=== PATIENT | female | born 1945 | race Caucasian/White ===

== ENCOUNTER 2020-08-01 08:57 | Outpatient (REF) | payer MEDICARE, MEDICAID, SELFPAY ==
[2020-08-01 11:55] LABS: Alanine Aminotransferase 10 U/L (0-31); Anion Gap 13 (12-20); Aspartate Amino Transferase 13 U/L (5-31); Blood Urea Nitrogen 17 mg/dL (9-16); Calcium 8.5 mg/dL (8.4-10.2); Carbon Dioxide 27 mmol/L (22-29); Chloride 108 mmol/L (96-108); Cholesterol 137 mg/dL; Estimated Glomerular Filt Rate > 60; Glucose Fasting 106 mg/dL (60-99); HDL Cholesterol 42 mg/dL; LDL Cholesterol Calculated 76 mg/dl; Potassium 4.6 mmol/l (3.3-5.1); Sodium 143 mmol/L (135-145); Triglycerides 95 mg/dL
[2020-08-08 09:17] LABS: Lipoprotein A 303 nmol/L (<75)
== END 2020-08-01 08:58 | disposition home or self-care (01) ==
LOC: HO.HMGCLDS 08:57
PROVIDERS: PCP Internal Medicine; Visit Provider Internal Medicine
DX: I25.10 Atherosclerotic heart disease of native coronary artery without angina pectoris (principal); E78.5 Hyperlipidemia, unspecified; I10 Essential (primary) hypertension
CPT/HCPCS: 80048; 80061; 83695; 84450; 84460

== ENCOUNTER 2020-08-13 13:32 | Outpatient (REF) | payer MEDICARE, MEDICAID, SELFPAY ==
--- NOTE | 2020-08-15 10:20 | MHC.HEMONCSW ---
PER [facility] PET, PT PREFERS SCAN BE DONE 08/20/20. AT 10;15AM.
== END 2020-08-13 13:33 | disposition home or self-care (01) ==
LOC: HO.PET 13:32
PROVIDERS: Visit Provider Internal Medicine
DX: Z13.89 Encounter for screening for other disorder (principal)

== ENCOUNTER 2020-08-20 10:00 | Outpatient (REF) | payer MEDICARE, MEDICAID, SELFPAY ==
--- NOTE | 2020-08-20 | PE_ITS ---
EXAMINATION: Fluorine-18 FDG PET/CT Scan CLINICAL INDICATION: Subsequent treatment management. Metastatic breast cancer, restaging. PROCEDURE: 66 minutes following the intravenous administration of 16.1 mCi of fluorine 18 FDG, images from the base of the skull to the mid thighs were obtained using a combined PET/CT scanner with CT scan based attenuation correction. No oral contrast was administered. No intravenous contrast was administered. Transverse, coronal, sagittal, and volume reconstruction projections were obtained. The patient's blood glucose as determined by a finger stick, was 112 mg/dl immediately prior to injection. Total CT exam dose-length product 452.32 mGy-cm COMPARISON: The previous PET CT scan dated 11/07/2019 is available for comparison. More recent CT scan of the chest dated 04/15/2020 is also available for comparison. FINDINGS: (Slice numbers described in this report are numbered superiorly to inferiorly with slice #1 in the head) NECK AND VISUALIZED HEAD: No foci of abnormal FDG activity are noted. The distribution of FDG activity is physiological. There is no cervical lymphadenopathy. THORAX: There is a moderately sized loculated right pleural effusion. The pleural fluid is FDG photopenic, but both the medial and lateral pleural surfaces show mildly increased FDG activity diffusely, with SUV Max 4.2, slice 132/311. The circumferential peripheral FDG activity in the pleura is new since the prior PET CT scan dated 11/07/2019. The most intense FDG activity is associated with pleural calcifications that were not present on 11/07/2019 and are also more extensive than scattered pleural calcifications present on the diagnostic CT scan dated 04/15/2020. There has also been a significant decrease in FDG activity present in the right lower lobe proximal peribronchial region present on 11/07/2019. A chest tube present on the 04/15/[address] scan has been removed and the pleural effusion now present is significantly smaller than on the latter study. Scattered bilateral FDG avid groundglass opacities are present, most prominent in the left upper lobe showing SUV Max 3.2, slice 80/311 corresponding to a very irregular patchy opacity measuring approximately 2.6 x 2.1 cm in largest transverse dimensions, and approximately 1.7 cm cephalocaudad. Inferior to this an additional smaller and very irregular groundglass opacity shows mild FDG activity, SUV Max 3.9, slice 88/311. A smaller and less prominent right upper lobe groundglass opacity shows SUV Max 2.3, also slice 88/311. These no additional foci of abnormal FDG activity are present in the chest. There is no mediastinal, supraclavicular, or axillary lymphadenopathy. There is no left-sided pleural fluid, pericardial fluid, or pneumothorax. Groundglass opacities are all new since 04/15/2020. ABDOMEN AND PELVIS: In the liver there are is a focus of mild FDG activity present in liver Couinaud segment 8, SUV Max 4.5, slice 133/311. This corresponds to the superior margin of a hypodensity on the CT images that measures 4.3 x 2.5 cm in largest transverse dimensions and approximately 2.5 cm cephalocaudad. This focus is much less intense than an FDG avid focus at this site on the 11/07/2019 PET/CT scan when this showed SUV Max 9.7. This is also smaller in size than previously when this measured 5.4 x 3.9 x 4.2 cm. Additional intensely FDG avid liver focus inferior and posterior to this has completely resolved and there has also been resolution of intensely FDG avid periportal lymphadenopathy present on 11/07/2019. No additional foci of abnormal FDG activity are now present in the abdomen or pelvis. Diffuse FDG activity of varying intensities is present throughout the gastrointestinal tract without a suspicious focal component. No additional FDG avid foci are present in the liver. The gallbladder and spleen appear unremarkable. The kidneys, adrenal glands and pancreas are unremarkable. There is no retroperitoneal, mesenteric, pelvic, or inguinal lymphadenopathy. The pelvic organs are unremarkable. MUSCULOSKELETAL: Diffuse sclerotic osseous metastases are present throughout the spine and pelvis and scattered in the thoracic cage and proximal femurs. None of these appear FDG avid. Intensely FDG avid osseous metastases present on the 11/17/2019 CT scan have resolved. VASCULAR: Diffuse vascular calcifications including coronary. PET/PET CT fusion skull to thigh IMPRESSION: 1. Since the prior PET CT scan dated 11/07/2019, intensely FDG avid hepatic and osseous metastases have resolved. Weak FDG activity in a small focus in the liver has markedly diminished in FDG intensity and size and other liver lesions have completely resolved. Diffuse sclerotic osseous metastases are now present, and these do not show significant abnormal FDG activity and likely represent healed metastases. 2. Intensely FDG avid periportal and peripancreatic and bilateral axillary lymphadenopathy previously present on 11/07/2019 has resolved. 3. There is now mild diffuse FDG activity in the periphery of the loculated pleural effusion on the right. This is nonspecific. While malignant pleural metastases that are metabolically active cannot be entirely excluded, this patient has undergone TPA pleurodesis since the prior PET CT scan and both the FDG avidity and new pleural calcifications may be secondary to the latter. A chest tube visible on the more recent 04/15/2020 CT scan has been removed. The pleural effusion is slightly smaller than on that prior CT scan. 4. FDG avid groundglass opacities have developed predominantly in the left upper lobe, new since 04/15/2020. These are more likely inflammatory in etiology, rather than malignant, because of the short term development and CT appearance. Clinical correlation is recommended, and in addition, a current diagnostic CT scan of the chest may be helpful in further characterizing these. 5. No additional abnormalities suspicious for other metastatic or malignant lesions are noted. 6. Vascular calcifications including coronary.
== END 2020-08-20 10:01 | disposition home or self-care (01) ==
LOC: HO.PET 10:00
PROVIDERS: Visit Provider Internal Medicine
DX: Z13.89 Encounter for screening for other disorder (principal)

== ENCOUNTER 2020-09-10 10:54 | Outpatient (REF) | payer MEDICARE, MEDICAID, SELFPAY ==
[2020-09-10 14:19] LABS: Hematocrit 31.4 % (37-47); Hemoglobin 10.3 g/dl (12.0-16.0); Lymphocytes Absolute Auto 0.5 X10*3/uL (1.2-4.9); Lymphocytes Percent Auto 26.1 % (20-40); MANUAL DIFF FLAG SCAN; Mean Corpuscular HGB Conc 32.8 g/dl (31.0-35.0); Mean Corpuscular Hemoglobin 35.2 pg (27.0-33.0); Mean Corpuscular Volume 107.2 fL (80-98); Mean Platelet Volume 11.5 fL (9.4-12.3); Monocytes Absolute Auto 0.3 X10*3/uL (0.1-1.2); Monocytes Percent Auto 14.1 % (2-11); Neutrophils Absolute Auto 1.1 X10*3/uL (2.0-8.3); Neutrophils Percent Auto 55.8 % (45-73); Platelet Count 130 X10*3/uL (160-400); Red Blood Count 2.93 X10*6/uL (4.20-5.50); Red Cell Distribution Width 16.9 % (11.0-16.0); SCAN SMEAR FLAG 1
[2020-09-10 14:40] LABS: Alanine Aminotransferase 13 U/L (0-31); Albumin Level 3.8 g/dL (3.5-5.0); Alkaline Phosphatase 98 U/L (39-117); Anion Gap 11 (12-20); Aspartate Amino Transferase 15 U/L (5-31); Bilirubin Total 0.7 mg/dL (0.0-1.0); Blood Urea Nitrogen 21 mg/dL (9-16); Calcium 8.4 mg/dL (8.4-10.2); Carbon Dioxide 28 mmol/L (22-29); Chloride 105 mmol/L (96-108); Estimated Glomerular Filt Rate 60; Glucose Random 110 mg/dL (60-115); Potassium 4.6 mmol/l (3.3-5.1); Sodium 139 mmol/L (135-145); Total Protein 6.3 g/dL (6.5-8.0)
[2020-09-10 15:05] LABS: SLIDE REVIEW VERIFIED
[2020-09-11 13:12] LABS: CA 27.29 133 U/mL (<38)
== END 2020-09-10 10:55 | disposition home or self-care (01) ==
LOC: HO.HMGCLDS 10:54
PROVIDERS: PCP Internal Medicine; Visit Provider Internal Medicine
DX: C50.919 Malignant neoplasm of unspecified site of unspecified female breast (principal)
CPT/HCPCS: 36415; 80053; 85025; 86300

== ENCOUNTER 2020-09-26 11:08 | Outpatient (REF) | payer MEDICARE, MEDICAID, SELFPAY | END 2020-09-26 11:09 | disposition home or self-care (01) | LOC: HO.LAB 11:08 | PROVIDERS: Visit Provider Internal Medicine | DX: Z20.828 Contact with and (suspected) exposure to other viral communicable diseases (principal) | CPT/HCPCS: C9803; U0003 ==

== ENCOUNTER 2020-10-31 09:50 | Outpatient (REF) | payer MEDICARE, MEDICAID, SELFPAY ==
[2020-10-31 11:24] LABS: Hematocrit 33.6 % (37-47); Hemoglobin 11.4 g/dl (12.0-16.0); Mean Corpuscular HGB Conc 33.9 g/dl (31.0-35.0); Mean Corpuscular Hemoglobin 36.4 pg (27.0-33.0); Mean Corpuscular Volume 107.3 fL (80-98); Mean Platelet Volume 10.1 fL (9.4-12.3); Platelet Count 202 X10*3/uL (160-400); Red Blood Count 3.13 X10*6/uL (4.20-5.50); Red Cell Distribution Width 13.3 % (11.0-16.0)
[2020-10-31 11:25] LABS: White Blood Count 2.2 X10*3/uL (4.8-10.8)
[2020-10-31 11:43] LABS: Alanine Aminotransferase 13 U/L (0-31); Albumin Level 3.9 g/dL (3.5-5.0); Alkaline Phosphatase 78 U/L (39-117); Anion Gap 12 (12-20); Aspartate Amino Transferase 17 U/L (5-31); Bilirubin Total 0.7 mg/dL (0.0-1.0); Blood Urea Nitrogen 21 mg/dL (9-16); Calcium 8.6 mg/dL (8.4-10.2); Carbon Dioxide 28 mmol/L (22-29); Chloride 105 mmol/L (96-108); Estimated Glomerular Filt Rate 47; Glucose Random 101 mg/dL (60-115); Potassium 4.7 mmol/l (3.3-5.1); Sodium 140 mmol/L (135-145); Total Protein 6.3 g/dL (6.5-8.0)
[2020-10-31 12:12] LABS: Band Neutrophils Percent 3 % (3-5); Eosinophils Percent Manual 1 % (0-4); Lymphocytes Absolute Manual 0.4 X10*3/uL (0.6-4.8); Lymphocytes Percent Manual 20 % (20-40); Monocytes Absolute Manual 0.2 X10*3/uL (0.0-1.2); Monocytes Percent Manual 7 % (2-11); Neutrophils Absolute Manual 1.6 X10*3/uL (2.2-7.9); Neutrophils Percent Manual 69 % (45-73)
[2020-10-31 12:13] LABS: Macrocytosis 2+; Platelet Estimate NORMAL (NORMAL)
[2020-10-31 12:14] LABS: Platelet Morphology Comment NORMAL
[2020-10-31 12:15] LABS: Ovalocytes 1+; Tear Drop Cells 1+
[2020-10-31 12:16] LABS: RBC Morphology NOTED
[2020-11-01 11:37] LABS: CA 27.29 117 U/mL (<38)
== END 2020-10-31 09:51 | disposition home or self-care (01) ==
LOC: HO.HMGCLDS 09:50
PROVIDERS: PCP Internal Medicine; Visit Provider Internal Medicine
DX: C50.919 Malignant neoplasm of unspecified site of unspecified female breast (principal)
CPT/HCPCS: 36415; 80053; 85007; 85025; 85027; 86300

== ENCOUNTER 2020-11-12 14:23 | Outpatient (REF) | payer MEDICARE, MEDICAID, SELFPAY ==
[2020-11-12 16:39] LABS: Basophils Percent Auto 1.3 % (0-2); Eosinophils Percent Auto 0.9 % (0-4); Hematocrit 29.3 % (37-47); Hemoglobin 10.1 g/dl (12.0-16.0); Lymphocytes Absolute Auto 0.8 X10*3/uL (1.2-4.9); Lymphocytes Percent Auto 35.6 % (20-40); Mean Corpuscular HGB Conc 34.5 g/dl (31.0-35.0); Mean Corpuscular Hemoglobin 36.6 pg (27.0-33.0); Mean Corpuscular Volume 106.2 fL (80-98); Mean Platelet Volume 11.3 fL (9.4-12.3); Monocytes Absolute Auto 0.4 X10*3/uL (0.1-1.2); Monocytes Percent Auto 16.9 % (2-11); Neutrophils Percent Auto 45.3 % (45-73); Platelet Count 113 X10*3/uL (160-400); Red Blood Count 2.76 X10*6/uL (4.20-5.50); Red Cell Distribution Width 13.7 % (11.0-16.0); SCAN SMEAR FLAG 1
[2020-11-12 16:45] LABS: White Blood Count 2.3 X10*3/uL (4.8-10.8)
[2020-11-12 16:46] LABS: MANUAL DIFF FLAG NO
[2020-11-12 17:21] LABS: Alanine Aminotransferase 13 U/L (0-31); Albumin Level 3.7 g/dL (3.5-5.0); Alkaline Phosphatase 74 U/L (39-117); Anion Gap 12 (12-20); Aspartate Amino Transferase 15 U/L (5-31); Bilirubin Total 0.7 mg/dL (0.0-1.0); Blood Urea Nitrogen 21 mg/dL (9-16); Calcium 8.7 mg/dL (8.4-10.2); Carbon Dioxide 27 mmol/L (22-29); Chloride 108 mmol/L (96-108); Estimated Glomerular Filt Rate 48; Glucose Random 110 mg/dL (60-115); Potassium 4.4 mmol/l (3.3-5.1); Sodium 143 mmol/L (135-145)
[2020-11-13 13:06] LABS: CA 27.29 99 U/mL (<38)
== END 2020-11-12 14:24 | disposition home or self-care (01) ==
LOC: HO.HMGCLDS 14:23
PROVIDERS: PCP Internal Medicine; Visit Provider Internal Medicine
DX: C50.919 Malignant neoplasm of unspecified site of unspecified female breast (principal)
CPT/HCPCS: 36415; 80053; 85025; 86300

== ENCOUNTER 2020-11-22 10:32 | Outpatient (REF) | payer MEDICARE, MEDICAID, SELFPAY ==
[2020-11-22 13:57] LABS: Hematocrit 29.3 % (37-47); Hemoglobin 10.1 g/dl (12.0-16.0); Mean Corpuscular HGB Conc 34.5 g/dl (31.0-35.0); Mean Corpuscular Hemoglobin 37.1 pg (27.0-33.0); Mean Corpuscular Volume 107.7 fL (80-98); Mean Platelet Volume 10.8 fL (9.4-12.3); Platelet Count 253 X10*3/uL (160-400); Red Blood Count 2.72 X10*6/uL (4.20-5.50); Red Cell Distribution Width 13.9 % (11.0-16.0)
[2020-11-22 13:58] LABS: White Blood Count 1.9 X10*3/uL (4.8-10.8)
[2020-11-22 14:26] LABS: Alanine Aminotransferase 10 U/L (0-31); Albumin Level 3.7 g/dL (3.5-5.0); Alkaline Phosphatase 82 U/L (39-117); Anion Gap 10 (12-20); Aspartate Amino Transferase 14 U/L (5-31); Blood Urea Nitrogen 23 mg/dL (9-16); Calcium 8.8 mg/dL (8.4-10.2); Carbon Dioxide 28 mmol/L (22-29); Chloride 108 mmol/L (96-108); Estimated Glomerular Filt Rate 54; Glucose Random 107 mg/dL (60-115); Potassium 4.4 mmol/L (3.3-5.1); Sodium 142 mmol/L (135-145)
== END 2020-11-22 10:33 | disposition home or self-care (01) ==
LOC: HO.HMGCLR 10:32
PROVIDERS: PCP Internal Medicine; Visit Provider Internal Medicine
DX: C50.919 Malignant neoplasm of unspecified site of unspecified female breast (principal)
CPT/HCPCS: 36415; 80053; 85027

== ENCOUNTER 2021-01-20 10:42 | Outpatient (REF) | payer MEDICARE, MEDICAID, SELFPAY ==
[2021-01-20 14:10] LABS: Basophils Percent Auto 1.6 % (0-2); Eosinophils Absolute Auto 0.1 X10*3/uL (0.0-0.4); Eosinophils Percent Auto 2.6 % (0-4); Hematocrit 30.2 % (37-47); Hemoglobin 10.4 g/dl (12.0-16.0); Imm Gran Abs Auto 0.01 X10*3/uL (0.00-0.03); Imm Gran Pct Auto 0.5 % (0.0-0.4); Lymphocytes Absolute Auto 0.6 X10*3/uL (1.2-4.9); Lymphocytes Percent Auto 29.1 % (20-40); MANUAL DIFF FLAG SCAN; Mean Corpuscular HGB Conc 34.4 g/dl (31.0-35.0); Mean Corpuscular Hemoglobin 37.5 pg (27.0-33.0); Mean Platelet Volume 10.6 fL (9.4-12.3); Monocytes Absolute Auto 0.2 X10*3/uL (0.1-1.2); Monocytes Percent Auto 10.1 % (2-11); Neutrophils Absolute Auto 1.1 X10*3/uL (2.0-8.3); Neutrophils Percent Auto 56.1 % (45-73); Platelet Count 213 X10*3/uL (160-400); Red Blood Count 2.77 X10*6/uL (4.20-5.50); Red Cell Distribution Width 14.5 % (11.0-16.0); SCAN SMEAR FLAG 1
[2021-01-20 14:15] LABS: White Blood Count 1.9 X10*3/uL (4.8-10.8)
[2021-01-20 14:27] LABS: Alanine Aminotransferase 14 U/L (0-31); Albumin Level 3.8 g/dL (3.5-5.0); Alkaline Phosphatase 76 U/L (39-117); Anion Gap 15 (12-20); Aspartate Amino Transferase 18 U/L (5-31); Bilirubin Total 1.4 mg/dL (0.0-1.0); Blood Urea Nitrogen 19 mg/dL (9-16); Calcium 8.7 mg/dL (8.4-10.2); Carbon Dioxide 27 mmol/L (22-29); Chloride 105 mmol/L (96-108); Estimated Glomerular Filt Rate 47; Glucose Fasting 105 mg/dL (60-99); Potassium 4.6 mmol/L (3.3-5.1); Sodium 142 mmol/L (135-145); Total Protein 6.3 g/dL (6.5-8.0)
[2021-01-20 14:48] LABS: SLIDE REVIEW VERIFIED
[2021-01-22 12:46] LABS: CA 27.29 107 U/mL (<38)
== END 2021-01-20 10:43 | disposition home or self-care (01) ==
LOC: HO.HMGCLR 10:42
PROVIDERS: Visit Provider Internal Medicine
DX: C50.919 Malignant neoplasm of unspecified site of unspecified female breast (principal)
CPT/HCPCS: 36415; 80053; 85025; 86300

== ENCOUNTER 2021-02-17 09:23 | Outpatient (REF) | payer MEDICARE, MEDICAID, SELFPAY ==
[2021-02-17 11:46] LABS: Basophils Absolute Auto 0.1 X10*3/uL (0.0-0.2); Basophils Percent Auto 2.2 % (0-2); Eosinophils Percent Auto 1.3 % (0-4); Hematocrit 31.9 % (37-47); Lymphocytes Absolute Auto 0.7 X10*3/uL (1.2-4.9); Lymphocytes Percent Auto 23.2 % (20-40); MANUAL DIFF FLAG SCAN; Mean Corpuscular HGB Conc 34.5 g/dl (31.0-35.0); Mean Corpuscular Hemoglobin 36.9 pg (27.0-33.0); Mean Platelet Volume 9.8 fL (9.4-12.3); Monocytes Absolute Auto 0.2 X10*3/uL (0.1-1.2); Monocytes Percent Auto 5.7 % (2-11); Neutrophils Absolute Auto 2.1 X10*3/uL (2.0-8.3); Neutrophils Percent Auto 67.6 % (45-73); Platelet Count 267 X10*3/uL (160-400); Red Blood Count 2.98 X10*6/uL (4.20-5.50); Red Cell Distribution Width 12.9 % (11.0-16.0); SCAN SMEAR FLAG 1; White Blood Count 3.2 X10*3/uL (4.8-10.8)
[2021-02-17 12:09] LABS: Alanine Aminotransferase 13 U/L (0-31); Albumin Level 3.8 g/dL (3.5-5.0); Alkaline Phosphatase 82 U/L (39-117); Anion Gap 13 (12-20); Aspartate Amino Transferase 18 U/L (5-31); Bilirubin Total 0.7 mg/dL (0.0-1.0); Blood Urea Nitrogen 19 mg/dL (9-16); Calcium 9.1 mg/dL (8.4-10.2); Carbon Dioxide 25 mmol/L (22-29); Chloride 107 mmol/L (96-108); Estimated Glomerular Filt Rate 53; Glucose Random 104 mg/dL (60-115); Potassium 4.4 mmol/L (3.3-5.1); Sodium 141 mmol/L (135-145); Total Protein 6.3 g/dL (6.5-8.0)
[2021-02-17 12:17] LABS: SLIDE REVIEW VERIFIED
== END 2021-02-17 09:24 | disposition home or self-care (01) ==
LOC: HO.HMGCLR 09:23
PROVIDERS: PCP Internal Medicine; Visit Provider Internal Medicine
DX: C50.919 Malignant neoplasm of unspecified site of unspecified female breast (principal)
CPT/HCPCS: 36415; 80053; 85025

== ENCOUNTER 2021-03-17 08:58 | Outpatient (REF) | payer MEDICARE, MEDICAID, SELFPAY ==
[2021-03-17 11:50] LABS: Alanine Aminotransferase 17 U/L (0-31); Albumin Level 3.8 g/dL (3.5-5.0); Alkaline Phosphatase 80 U/L (39-117); Anion Gap 11 (12-20); Aspartate Amino Transferase 19 U/L (5-31); Bilirubin Total 1.2 mg/dL (0.0-1.0); Blood Urea Nitrogen 17 mg/dL (9-16); Calcium 8.8 mg/dL (8.4-10.2); Carbon Dioxide 26 mmol/L (22-29); Chloride 107 mmol/L (96-108); Estimated Glomerular Filt Rate 54; Glucose Random 107 mg/dL (60-115); Potassium 4.9 mmol/L (3.3-5.1); Sodium 139 mmol/L (135-145); Total Protein 6.3 g/dL (6.5-8.0)
[2021-03-17 11:55] LABS: Basophils Absolute Auto 0.1 X10*3/uL (0.0-0.2); Basophils Percent Auto 1.9 % (0-2); Eosinophils Percent Auto 1.1 % (0-4); Hematocrit 31.7 % (37-47); Hemoglobin 10.6 g/dl (12.0-16.0); Imm Gran Abs Auto 0.01 X10*3/uL (0.00-0.03); Imm Gran Pct Auto 0.4 % (0.0-0.4); Lymphocytes Absolute Auto 0.8 X10*3/uL (1.2-4.9); Lymphocytes Percent Auto 30.2 % (20-40); MANUAL DIFF FLAG SCAN; Mean Corpuscular HGB Conc 33.4 g/dl (31.0-35.0); Mean Corpuscular Hemoglobin 36.2 pg (27.0-33.0); Mean Corpuscular Volume 108.2 fL (80-98); Mean Platelet Volume 10.9 fL (9.4-12.3); Monocytes Absolute Auto 0.2 X10*3/uL (0.1-1.2); Monocytes Percent Auto 7.9 % (2-11); Neutrophils Absolute Auto 1.6 X10*3/uL (2.0-8.3); Neutrophils Percent Auto 58.5 % (45-73); Platelet Count 232 X10*3/uL (160-400); Red Blood Count 2.93 X10*6/uL (4.20-5.50); Red Cell Distribution Width 14.6 % (11.0-16.0); SCAN SMEAR FLAG 1; White Blood Count 2.7 X10*3/uL (4.8-10.8)
[2021-03-17 12:08] LABS: SLIDE REVIEW VERIFIED
== END 2021-03-17 08:59 | disposition home or self-care (01) ==
LOC: HO.HMGCLR 08:58
PROVIDERS: PCP Internal Medicine; Visit Provider Internal Medicine
DX: C50.919 Malignant neoplasm of unspecified site of unspecified female breast (principal)
CPT/HCPCS: 36415; 80053; 85025

== ENCOUNTER 2021-04-11 13:32 | Outpatient (REF) | payer MEDICARE, MEDICAID, SELFPAY ==
[2021-04-11 16:36] LABS: Basophils Percent Auto 1.6 % (0-2); Eosinophils Percent Auto 0.8 % (0-4); Hematocrit 27.4 % (37-47); Hemoglobin 9.5 g/dl (12.0-16.0); Imm Gran Abs Auto 0.01 X10*3/uL (0.00-0.03); Imm Gran Pct Auto 0.4 % (0.0-0.4); Lymphocytes Absolute Auto 0.6 X10*3/uL (1.2-4.9); Lymphocytes Percent Auto 24.1 % (20-40); MANUAL DIFF FLAG SCAN; Mean Corpuscular HGB Conc 34.7 g/dl (31.0-35.0); Mean Corpuscular Hemoglobin 37.4 pg (27.0-33.0); Mean Corpuscular Volume 107.9 fL (80-98); Mean Platelet Volume 10.8 fL (9.4-12.3); Monocytes Absolute Auto 0.3 X10*3/uL (0.1-1.2); Neutrophils Absolute Auto 1.6 X10*3/uL (2.0-8.3); Neutrophils Percent Auto 63.1 % (45-73); Platelet Count 197 X10*3/uL (160-400); Red Blood Count 2.54 X10*6/uL (4.20-5.50); Red Cell Distribution Width 15.1 % (11.0-16.0); SCAN SMEAR FLAG 1
[2021-04-11 16:41] LABS: White Blood Count 2.5 X10*3/uL (4.8-10.8)
[2021-04-11 16:48] LABS: Alanine Aminotransferase 10 U/L (0-31); Albumin Level 3.5 g/dL (3.5-5.0); Alkaline Phosphatase 77 U/L (39-117); Anion Gap 11 (12-20); Aspartate Amino Transferase 21 U/L (5-31); Bilirubin Total 1.2 mg/dL (0.0-1.0); Blood Urea Nitrogen 22 mg/dL (9-16); Calcium 8.4 mg/dL (8.4-10.2); Carbon Dioxide 23 mmol/L (22-29); Chloride 113 mmol/L (96-108); Estimated Glomerular Filt Rate 58; Glucose Random 121 mg/dL (60-115); Potassium 4.3 mmol/L (3.3-5.1); Sodium 143 mmol/L (135-145); Total Protein 5.8 g/dL (6.5-8.0)
[2021-04-11 17:04] LABS: SLIDE REVIEW VERIFIED
== END 2021-04-11 13:33 | disposition home or self-care (01) ==
LOC: HO.HMGCLR 13:32
PROVIDERS: Visit Provider Internal Medicine
DX: C79.81 Secondary malignant neoplasm of breast (principal)
CPT/HCPCS: 36415; 80053; 85025

== ENCOUNTER 2021-04-14 11:00 | Outpatient (REF) | payer MEDICARE, MEDICAID, SELFPAY ==
--- NOTE | ~2021-04-14 | XR_ITS ---
EXAMINATION: XR CHEST CLINICAL INFORMATION: Right malignant effusion. COMPARISON: Chest 06/14/2020 TECHNIQUE: Frontal view of the chest was obtained. FINDINGS: There is a loculated right lateral pleural effusion with underlying compressive atelectasis. The right upper lungs and left lung is expanded and clear. Heart size and pulmonary vascularity is normal. No gross bony abnormality seen. XR/XR chest 1V IMPRESSION: Artery loculated right pleural effusion in the lower lobe. There is underlying compressive atelectasis and/or scarring. Rest of the lungs are clear.
== END 2021-04-14 11:01 | disposition home or self-care (01) ==
LOC: HO.XRAY 11:00
PROVIDERS: PCP Internal Medicine; Visit Provider Internal Medicine
DX: R06.02 Shortness of breath (principal)
CPT/HCPCS: 71045

== ENCOUNTER 2021-05-24 06:25 | Outpatient (REF) | payer MEDICARE, MEDICAID, SELFPAY ==
[2021-05-24 06:29] LABS: MANUAL DIFF FLAG NO
[2021-05-24 06:55] LABS: Basophils Absolute Auto 0.1 X10*3/uL (0.0-0.2); Basophils Percent Auto 1.3 % (0-2); Eosinophils Absolute Auto 2.1 X10*3/uL (0.0-0.4); Eosinophils Percent Auto 25.2 % (0-4); Imm Gran Abs Auto 0.13 X10*3/uL (0.00-0.03); Imm Gran Pct Auto 1.6 % (0.0-0.4); Lymphocytes Absolute Auto 0.6 X10*3/uL (1.2-4.9); Lymphocytes Percent Auto 7.4 % (20-40); Mean Corpuscular HGB Conc 31.6 g/dl (31.0-35.0); Mean Corpuscular Hemoglobin 32.8 pg (27.0-33.0); Mean Corpuscular Volume 103.9 fL (80-98); Mean Platelet Volume 10.2 fL (9.4-12.3); Monocytes Absolute Auto 1.1 X10*3/uL (0.1-1.2); Monocytes Percent Auto 13.6 % (2-11); Neutrophils Absolute Auto 4.2 X10*3/uL (2.0-8.3); Neutrophils Percent Auto 50.9 % (45-73); Platelet Count 252 X10*3/uL (160-400); Red Cell Distribution Width 15.9 % (11.0-16.0); White Blood Count 8.2 X10*3/uL (4.8-10.8)
[2021-05-24 07:23] LABS: Alanine Aminotransferase < 6 U/L (0-31); Albumin Level 2.3 g/dL (3.5-5.0); Alkaline Phosphatase 84 U/L (39-117); Aspartate Amino Transferase 50 U/L (5-31); Bilirubin Total 0.5 mg/dL (0.0-1.0); Blood Urea Nitrogen 7 mg/dL (9-16); Carbon Dioxide 33 mmol/L (22-29); Chloride 98 mmol/L (96-108); Estimated Glomerular Filt Rate 20; Glucose Random 109 mg/dL (60-115); Sodium 139 mmol/L (135-145); Total Protein 4.7 g/dL (6.5-8.0)
[2021-05-24 07:25] LABS: Anion Gap 11 (12-20); Calcium 7.1 mg/dL (8.4-10.2); Potassium 2.7 mmol/L (3.3-5.1)
[2021-05-24 08:00] LABS: Hematocrit 18.7 % (37-47)
[2021-05-24 08:13] LABS: Hemoglobin 5.9 g/dl (12.0-16.0)
--- NOTE | 2021-05-26 08:19 | MHC.HEMONC ---
pt is inpt at [facility]. H and H critically low and pt currently being dialyzed. Dr Shafer aware.
[2021-05-26 12:20] LABS: CA 27.29 96 U/mL (<38)
== END 2021-05-24 06:26 | disposition home or self-care (01) ==
LOC: HO.MMNH1L 06:25
PROVIDERS: Visit Provider Family Medicine
DX: C50.919 Malignant neoplasm of unspecified site of unspecified female breast (principal)
CPT/HCPCS: 36415; 80053; 85025; 86300

== ENCOUNTER 2021-05-26 21:19 | Outpatient (REF) | payer MEDICAID, SELFPAY | END 2021-05-26 21:20 | disposition home or self-care (01) | LOC: HO.MMNH1L 21:19 | PROVIDERS: Visit Provider Family Medicine | DX: Z13.89 Encounter for screening for other disorder (principal) ==

== ENCOUNTER 2021-06-02 00:18 | Outpatient (REF) | payer MEDICAID, SELFPAY | END 2021-06-02 00:19 | disposition home or self-care (01) | LOC: HO.MMNH1L 00:18 | PROVIDERS: Visit Provider Family Medicine | DX: Z13.89 Encounter for screening for other disorder (principal) ==

== ENCOUNTER 2021-06-06 13:47 | Outpatient (REF) | payer MEDICARE, MEDICAID, SELFPAY ==
[2021-06-06 14:26] LABS: Alanine Aminotransferase 22 U/L (0-31); Albumin Level 2.7 g/dL (3.5-5.0); Alkaline Phosphatase 114 U/L (39-117); Anion Gap 17 (12-20); Aspartate Amino Transferase 46 U/L (5-31); Bilirubin Total 0.7 mg/dL (0.0-1.0); Blood Urea Nitrogen 24 mg/dL (9-16); Carbon Dioxide 26 mmol/L (22-29); Chloride 105 mmol/L (96-108); Estimated Glomerular Filt Rate 34; Glucose Random 74 mg/dL (60-115); Potassium 3.1 mmol/L (3.3-5.1); Sodium 145 mmol/L (135-145)
[2021-06-06 14:47] LABS: Calcium 6.2 mg/dL (8.4-10.2)
== END 2021-06-06 13:48 | disposition home or self-care (01) ==
LOC: HO.LNP 13:47
PROVIDERS: Referring Provider Internal Medicine; Visit Provider Internal Medicine
DX: N18.6 End stage renal disease (principal); Z79.2 Long term (current) use of antibiotics
CPT/HCPCS: 80053

== ENCOUNTER 2021-06-09 00:32 | Outpatient (REF) | payer MEDICAID, SELFPAY | END 2021-06-09 00:33 | disposition home or self-care (01) | LOC: HO.MMNH1L 00:32 | PROVIDERS: Visit Provider Family Medicine | DX: Z13.89 Encounter for screening for other disorder (principal) ==

== ENCOUNTER 2021-06-13 11:06 | Outpatient (REF) | payer MEDICARE, MEDICAID, SELFPAY ==
[2021-06-13 13:59] LABS: MANUAL DIFF FLAG NO
[2021-06-13 14:04] LABS: Basophils Percent Auto 0.4 % (0-2); Eosinophils Absolute Auto 0.4 X10*3/uL (0.0-0.4); Eosinophils Percent Auto 5.4 % (0-4); Hematocrit 24.7 % (37-47); Hemoglobin 7.9 g/dl (12.0-16.0); Imm Gran Abs Auto 0.06 X10*3/uL (0.00-0.03); Imm Gran Pct Auto 0.9 % (0.0-0.4); Lymphocytes Absolute Auto 0.6 X10*3/uL (1.2-4.9); Mean Corpuscular Hemoglobin 31.2 pg (27.0-33.0); Mean Corpuscular Volume 97.6 fL (80-98); Mean Platelet Volume 10.6 fL (9.4-12.3); Monocytes Absolute Auto 0.6 X10*3/uL (0.1-1.2); Neutrophils Absolute Auto 5.2 X10*3/uL (2.0-8.3); Neutrophils Percent Auto 75.3 % (45-73); Platelet Count 202 X10*3/uL (160-400); Red Blood Count 2.53 X10*6/uL (4.20-5.50); Red Cell Distribution Width 16.2 % (11.0-16.0); White Blood Count 6.9 X10*3/uL (4.8-10.8)
[2021-06-13 14:39] LABS: Alanine Aminotransferase 13 U/L (0-31); Alkaline Phosphatase 99 U/L (39-117); Anion Gap 18 (12-20); Aspartate Amino Transferase 30 U/L (5-31); Bilirubin Total 0.7 mg/dL (0.0-1.0); Blood Urea Nitrogen 17 mg/dL (9-16); Carbon Dioxide 31 mmol/L (22-29); Chloride 101 mmol/L (96-108); Estimated Glomerular Filt Rate 44; Glucose Random 166 mg/dL (60-115); Potassium 3.8 mmol/L (3.3-5.1); Sodium 146 mmol/L (135-145); Total Protein 5.8 g/dL (6.5-8.0)
[2021-06-13 14:45] LABS: Calcium 5.9 mg/dL (8.4-10.2)
== END 2021-06-13 11:07 | disposition home or self-care (01) ==
LOC: HO.HMGCLDS 11:06
PROVIDERS: PCP Internal Medicine; Visit Provider Internal Medicine
DX: C50.919 Malignant neoplasm of unspecified site of unspecified female breast (principal)
CPT/HCPCS: 36415; 80053; 85025

== ENCOUNTER 2021-06-20 11:59 | Outpatient (REF) | payer MEDICARE, MEDICAID, SELFPAY ==
[2021-06-20 13:51] LABS: Basophils Percent Auto 0.4 % (0-2); Eosinophils Absolute Auto 0.3 X10*3/uL (0.0-0.4); Eosinophils Percent Auto 5.5 % (0-4); Hemoglobin 7.5 g/dl (12.0-16.0); Imm Gran Abs Auto 0.03 X10*3/uL (0.00-0.03); Imm Gran Pct Auto 0.6 % (0.0-0.4); Lymphocytes Percent Auto 18.9 % (20-40); MANUAL DIFF FLAG SCAN; Mean Corpuscular HGB Conc 31.3 g/dl (31.0-35.0); Mean Corpuscular Hemoglobin 29.6 pg (27.0-33.0); Mean Corpuscular Volume 94.9 fL (80-98); Mean Platelet Volume 10.1 fL (9.4-12.3); Monocytes Absolute Auto 0.3 X10*3/uL (0.1-1.2); Monocytes Percent Auto 6.1 % (2-11); Neutrophils Absolute Auto 3.6 X10*3/uL (2.0-8.3); Neutrophils Percent Auto 68.5 % (45-73); Platelet Count 391 X10*3/uL (160-400); Red Blood Count 2.53 X10*6/uL (4.20-5.50); Red Cell Distribution Width 15.2 % (11.0-16.0); SCAN SMEAR FLAG 1; White Blood Count 5.2 X10*3/uL (4.8-10.8)
[2021-06-20 14:10] LABS: SLIDE REVIEW VERIFIED
[2021-06-20 14:18] LABS: Alanine Aminotransferase 27 U/L (0-31); Albumin Level 3.2 g/dL (3.5-5.0); Alkaline Phosphatase 122 U/L (39-117); Anion Gap 18 (12-20); Aspartate Amino Transferase 35 U/L (5-31); Bilirubin Total 0.8 mg/dL (0.0-1.0); Blood Urea Nitrogen 17 mg/dL (9-16); Calcium 9.2 mg/dL (8.4-10.2); Carbon Dioxide 23 mmol/L (22-29); Chloride 104 mmol/L (96-108); Estimated Glomerular Filt Rate 40; Glucose Random 112 mg/dL (60-115); Potassium 4.8 mmol/L (3.3-5.1); Sodium 140 mmol/L (135-145); Total Protein 6.3 g/dL (6.5-8.0)
== END 2021-06-20 12:00 | disposition home or self-care (01) ==
LOC: HO.HMGCLDS 11:59
PROVIDERS: PCP Internal Medicine; Visit Provider Internal Medicine
DX: C50.919 Malignant neoplasm of unspecified site of unspecified female breast (principal)
CPT/HCPCS: 36415; 80053; 85025

== ENCOUNTER 2021-06-27 13:05 | Outpatient (REF) | payer MEDICARE, MEDICAID, SELFPAY ==
[2021-06-27 14:23] LABS: Basophils Percent Auto 0.6 % (0-2); Eosinophils Percent Auto 1.2 % (0-4); Hematocrit 25.3 % (37-47); Imm Gran Abs Auto 0.02 X10*3/uL (0.00-0.03); Imm Gran Pct Auto 0.6 % (0.0-0.4); Lymphocytes Absolute Auto 0.8 X10*3/uL (1.2-4.9); MANUAL DIFF FLAG SCAN; Mean Corpuscular HGB Conc 31.6 g/dl (31.0-35.0); Mean Corpuscular Hemoglobin 29.4 pg (27.0-33.0); Mean Platelet Volume 9.4 fL (9.4-12.3); Monocytes Absolute Auto 0.2 X10*3/uL (0.1-1.2); Monocytes Percent Auto 4.9 % (2-11); Neutrophils Absolute Auto 2.3 X10*3/uL (2.0-8.3); Neutrophils Percent Auto 68.7 % (45-73); Platelet Count 269 X10*3/uL (160-400); Red Blood Count 2.72 X10*6/uL (4.20-5.50); Red Cell Distribution Width 14.6 % (11.0-16.0); SCAN SMEAR FLAG 1; White Blood Count 3.3 X10*3/uL (4.8-10.8)
[2021-06-27 14:45] LABS: SLIDE REVIEW VERIFIED
[2021-06-27 14:49] LABS: Alanine Aminotransferase 23 U/L (0-31); Albumin Level 3.1 g/dL (3.5-5.0); Alkaline Phosphatase 112 U/L (39-117); Anion Gap 13 (12-20); Aspartate Amino Transferase 25 U/L (5-31); Bilirubin Total 0.5 mg/dL (0.0-1.0); Blood Urea Nitrogen 19 mg/dL (9-16); Calcium 8.3 mg/dL (8.4-10.2); Carbon Dioxide 23 mmol/L (22-29); Chloride 109 mmol/L (96-108); Estimated Glomerular Filt Rate 49; Glucose Random 125 mg/dL (60-115); Potassium 4.3 mmol/L (3.3-5.1); Sodium 141 mmol/L (135-145)
== END 2021-06-27 13:06 | disposition home or self-care (01) ==
LOC: HO.HMGCLDS 13:05
PROVIDERS: PCP Internal Medicine; Visit Provider Internal Medicine
DX: C50.919 Malignant neoplasm of unspecified site of unspecified female breast (principal)
CPT/HCPCS: 36415; 80053; 85025

== ENCOUNTER 2021-07-21 15:00 | Outpatient (REF) | payer MEDICARE, MEDICAID, SELFPAY ==
[2021-07-21 16:38] LABS: Basophils Percent Auto 1.8 % (0-2); Eosinophils Percent Auto 0.9 % (0-4); Hematocrit 22.5 % (37-47); Hemoglobin 7.5 g/dl (12.0-16.0); Imm Gran Abs Auto 0.01 X10*3/uL (0.00-0.03); Imm Gran Pct Auto 0.5 % (0.0-0.4); Lymphocytes Absolute Auto 0.8 X10*3/uL (1.2-4.9); Lymphocytes Percent Auto 34.8 % (20-40); MANUAL DIFF FLAG SCAN; Mean Corpuscular HGB Conc 33.3 g/dl (31.0-35.0); Mean Corpuscular Hemoglobin 31.4 pg (27.0-33.0); Mean Corpuscular Volume 94.1 fL (80-98); Mean Platelet Volume 9.5 fL (9.4-12.3); Monocytes Absolute Auto 0.3 X10*3/uL (0.1-1.2); Monocytes Percent Auto 11.3 % (2-11); Neutrophils Absolute Auto 1.1 X10*3/uL (2.0-8.3); Neutrophils Percent Auto 50.7 % (45-73); Platelet Count 272 X10*3/uL (160-400); Red Blood Count 2.39 X10*6/uL (4.20-5.50); Red Cell Distribution Width 20.4 % (11.0-16.0); SCAN SMEAR FLAG 1
[2021-07-21 16:41] LABS: White Blood Count 2.2 X10*3/uL (4.8-10.8)
[2021-07-21 16:57] LABS: SLIDE REVIEW VERIFIED
[2021-07-21 16:59] LABS: Alanine Aminotransferase 11 U/L (0-31); Albumin Level 3.4 g/dL (3.5-5.0); Alkaline Phosphatase 100 U/L (39-117); Anion Gap 13 (12-20); Aspartate Amino Transferase 18 U/L (5-31); Bilirubin Total 0.6 mg/dL (0.0-1.0); Blood Urea Nitrogen 16 mg/dL (9-16); Calcium 8.2 mg/dL (8.4-10.2); Carbon Dioxide 24 mmol/L (22-29); Chloride 108 mmol/L (96-108); Estimated Glomerular Filt Rate 54; Glucose Random 81 mg/dL (60-115); Potassium 4.2 mmol/L (3.3-5.1); Sodium 141 mmol/L (135-145); Total Protein 6.1 g/dL (6.5-8.0)
[2021-07-23 11:41] LABS: CA 27.29 175 U/mL (<38)
== END 2021-07-21 15:01 | disposition home or self-care (01) ==
LOC: HO.HMGCLR 15:00
PROVIDERS: PCP Internal Medicine; Visit Provider Internal Medicine
DX: C50.919 Malignant neoplasm of unspecified site of unspecified female breast (principal)
CPT/HCPCS: 36415; 80053; 85025; 86300

== ENCOUNTER 2021-07-22 10:41 | Outpatient (REF) | payer MEDICARE, MEDICAID, SELFPAY ==
[2021-07-24 12:22] LABS: CA 27.29 184 U/mL (<38)
== END 2021-07-22 10:42 | disposition home or self-care (01) ==
LOC: HO.LAB 10:41
PROVIDERS: PCP Internal Medicine; Visit Provider Internal Medicine
DX: C50.919 Malignant neoplasm of unspecified site of unspecified female breast (principal)
CPT/HCPCS: 36415; 86300

== ENCOUNTER 2021-08-21 08:20 | Outpatient (REF) | payer MEDICARE, MEDICAID, SELFPAY ==
[2021-08-21 11:42] LABS: Alanine Aminotransferase 15 U/L (0-31); Anion Gap 11 (12-20); Aspartate Amino Transferase 27 U/L (5-31); Blood Urea Nitrogen 19 mg/dL (9-16); Calcium 8.3 mg/dL (8.4-10.2); Carbon Dioxide 26 mmol/L (22-29); Chloride 110 mmol/L (96-108); Cholesterol 130 mg/dL; Estimated Glomerular Filt Rate 51; Glucose Fasting 102 mg/dL (60-99); HDL Cholesterol 40 mg/dL; LDL Cholesterol Calculated 74 mg/dl; Potassium 4.5 mmol/L (3.3-5.1); Sodium 142 mmol/L (135-145); Triglycerides 81 mg/dL
[2021-08-21 11:54] LABS: Vitamin D 25-OH Total 41.4 ng/mL (>30)
[2021-08-21 12:09] LABS: Folate > 20.0 ng/mL (> or = 4.0); Vitamin B12 > 2000 pg/mL (200-900)
[2021-08-23 18:26] LABS: TS Negative Control Passed; TS Panel A 0; TS Panel B 0; TS Positive Control Passed; TSpotTB Negative (Negative)
== END 2021-08-21 08:21 | disposition home or self-care (01) ==
LOC: HO.HMGCLDS 08:20
PROVIDERS: PCP Internal Medicine; Visit Provider Internal Medicine
DX: Z11.1 Encounter for screening for respiratory tuberculosis (principal); E53.8 Deficiency of other specified B group vitamins; E78.5 Hyperlipidemia, unspecified; I10 Essential (primary) hypertension; Z78.0 Asymptomatic menopausal state
CPT/HCPCS: 36415; 80048; 80061; 82306; 82607; 82746; 84450; 84460; 86481

== ENCOUNTER 2021-08-25 14:08 | Outpatient (REF) | payer MEDICARE, MEDICAID, SELFPAY ==
[2021-08-26 09:48] LABS: Basophils Absolute Auto 0.1 X10*3/uL (0.0-0.2); Basophils Percent Auto 2.3 % (0-2); Eosinophils Absolute Auto 0.1 X10*3/uL (0.0-0.4); Eosinophils Percent Auto 2.8 % (0-4); Hematocrit 30.8 % (37.0-47.0); Hemoglobin 10.2 g/dl (12.0-16.0); Imm Gran Abs Auto 0.01 X10*3/uL (0.00-0.03); Imm Gran Pct Auto 0.5 % (0.0-0.4); Lymphocytes Absolute Auto 0.6 X10*3/uL (1.2-4.9); MANUAL DIFF FLAG SCAN; Mean Corpuscular HGB Conc 33.1 g/dl (31.0-35.0); Mean Corpuscular Hemoglobin 32.9 pg (27.0-33.0); Mean Corpuscular Volume 99.4 fL (80.0-98.0); Mean Platelet Volume 10.3 fL (9.4-12.3); Monocytes Absolute Auto 0.5 X10*3/uL (0.1-1.2); Neutrophils Absolute Auto 0.95 x10*3/uL (2.0-8.3); Neutrophils Percent Auto 44.4 % (45-73); Platelet Count 191 X10*3/uL (160-400); Red Cell Distribution Width 20.3 % (11.0-16.0); SCAN SMEAR FLAG 1
[2021-08-26 10:08] LABS: White Blood Count 2.1 X10*3/uL (4.8-10.8)
[2021-08-26 10:16] LABS: SLIDE REVIEW VERIFIED
[2021-08-26 14:12] LABS: Alanine Aminotransferase 19 U/L (0-31); Albumin Level 3.6 g/dL (3.5-5.0); Alkaline Phosphatase 130 U/L (39-117); Anion Gap 14 (12-20); Aspartate Amino Transferase 32 U/L (5-31); Bilirubin Total 0.9 mg/dL (0.0-1.0); Blood Urea Nitrogen 15 mg/dL (9-16); Calcium 8.1 mg/dL (8.4-10.2); Carbon Dioxide 21 mmol/L (22-29); Chloride 109 mmol/L (96-108); Estimated Glomerular Filt Rate 58; Glucose Random 145 mg/dL (60-115); Potassium 3.8 mmol/L (3.3-5.1); Sodium 140 mmol/L (135-145); Total Protein 6.1 g/dL (6.5-8.0)
== END 2021-08-25 14:09 | disposition home or self-care (01) ==
LOC: HO.HMGCLDS 14:08
PROVIDERS: PCP Internal Medicine; Visit Provider Internal Medicine
DX: C50.919 Malignant neoplasm of unspecified site of unspecified female breast (principal)
CPT/HCPCS: 36415; 80053; 85025

== ENCOUNTER 2021-09-12 08:08 | Outpatient (REF) | payer MEDICARE, MEDICAID, SELFPAY ==
[2021-09-12 11:31] LABS: Hematocrit 31.2 % (37.0-47.0); Hemoglobin 10.1 g/dl (12.0-16.0); Mean Corpuscular HGB Conc 32.4 g/dl (31.0-35.0); Mean Corpuscular Volume 98.7 fL (80.0-98.0); Mean Platelet Volume 9.7 fL (9.4-12.3); NRBC Pct Auto 0.2 /100WBC (0.0-0.2); Platelet Count 328 X10*3/uL (160-400); Red Blood Count 3.16 X10*6/uL (4.20-5.50); Red Cell Distribution Width 17.7 % (11.0-16.0); White Blood Count 10.3 X10*3/uL (4.8-10.8)
[2021-09-12 11:59] LABS: Atypical Lymph Absolute Manual 0.1 x10*3/uL; Atypical Lymphs Percent Manual 1 % (0-6); Band Neutrophils Percent 8 % (3-5); Basophils Abs Manual 0.1 X10*3/uL (0.0-0.2); Basophils Percent Manual 1 % (0-2); Eosinophils Absolute Manual 0.2 X10*3/uL (0.0-0.4); Eosinophils Percent Manual 2 % (0-4); Lymphocytes Absolute Manual 0.6 X10*3/uL (1.2-4.9); Lymphocytes Percent Manual 6 % (20-40); Monocytes Absolute Manual 0.9 X10*3/uL (0.1-1.2); Monocytes Percent Manual 9 % (2-11); Neutrophils Absolute Manual 8.3 X10*3/uL (2.0-8.3); Neutrophils Percent Manual 73 % (45-73)
[2021-09-12 12:01] LABS: Acanthocytes 1+ (0-2) /OIF; Hypochromasia 1+ (5-14) /OIF; Macrocytosis 1+ (5-14) /OIF; Ovalocytes 1+ (5-14) /OIF; RBC Morphology NOTED; Tear Drop Cells 1+ (0-2) /OIF
[2021-09-12 12:02] LABS: Platelet Estimate NORMAL (NORMAL); Platelet Morphology Comment NORMAL; Polychromasia 1+ (0-2) /OIF; WBC Morphology Comment DYSMORPHIC
[2021-09-12 12:11] LABS: Alanine Aminotransferase 22 U/L (0-31); Albumin Level 3.1 g/dL (3.5-5.0); Alkaline Phosphatase 115 U/L (39-117); Anion Gap 14 (12-20); Aspartate Amino Transferase 26 U/L (5-31); Bilirubin Total 0.9 mg/dL (0.0-1.0); Blood Urea Nitrogen 14 mg/dL (9-16); Calcium 8.2 mg/dL (8.4-10.2); Carbon Dioxide 23 mmol/L (22-29); Chloride 108 mmol/L (96-108); Estimated Glomerular Filt Rate > 60; Glucose Random 115 mg/dL (60-115); Potassium 4.7 mmol/L (3.3-5.1); Sodium 140 mmol/L (135-145); Total Protein 5.4 g/dL (6.5-8.0)
--- NOTE | 2021-09-12 15:26 | MHC.HEMONC ---
Dr Shafer reviewed pt labs drawn earlier today. Potassium to be decreased to once a day as it was 4.7. refilled per pt sister request.
== END 2021-09-12 08:09 | disposition home or self-care (01) ==
LOC: HO.HMGCLDS 08:08
PROVIDERS: PCP Internal Medicine; Visit Provider Internal Medicine
DX: C50.919 Malignant neoplasm of unspecified site of unspecified female breast (principal)
CPT/HCPCS: 36415; 80053; 85007; 85027

== ENCOUNTER 2021-09-16 11:55 | Outpatient (REF) | payer MEDICARE, MEDICAID, SELFPAY ==
--- NOTE | ~2021-09-16 | XR_ITS ---
EXAMINATION: XR CHEST CLINICAL INFORMATION: Shortness of breath. Pleural effusion. COMPARISON: Most recent chest radiograph dated 04/14/2021. TECHNIQUE: Frontal view of the chest was obtained. FINDINGS: Loculated lateral pleural effusion on the right, similar when compared to the prior examination. Stable patchy right basilar airspace opacities. No new left-sided pleural effusion. No pneumothorax. Stable cardiomediastinal silhouette. XR/XR chest 1V IMPRESSION: Stable loculated right-sided pleural effusion with patchy right basilar opacities, unchanged.
== END 2021-09-16 11:56 | disposition home or self-care (01) ==
LOC: HO.XRAY 11:55
PROVIDERS: PCP Internal Medicine; Visit Provider Internal Medicine
DX: J90 Pleural effusion, not elsewhere classified (principal); R06.02 Shortness of breath; C50.919 Malignant neoplasm of unspecified site of unspecified female breast
CPT/HCPCS: 71045

== ENCOUNTER 2021-10-06 08:23 | Outpatient (REF) | payer MEDICARE, MEDICAID, SELFPAY ==
[2021-10-06 11:43] LABS: MANUAL DIFF FLAG NO
[2021-10-06 11:59] LABS: Basophils Absolute Auto 0.1 X10*3/uL (0.0-0.2); Basophils Percent Auto 0.7 % (0-2); Eosinophils Absolute Auto 0.1 X10*3/uL (0.0-0.4); Eosinophils Percent Auto 1.6 % (0-4); Hematocrit 32.7 % (37.0-47.0); Hemoglobin 9.9 g/dl (12.0-16.0); Imm Gran Abs Auto 0.12 X10*3/uL (0.00-0.03); Imm Gran Pct Auto 1.5 % (0.0-0.4); Lymphocytes Percent Auto 12.1 % (20-40); Mean Corpuscular HGB Conc 30.3 g/dl (31.0-35.0); Mean Corpuscular Hemoglobin 30.1 pg (27.0-33.0); Mean Corpuscular Volume 99.4 fL (80.0-98.0); Mean Platelet Volume 10.3 fL (9.4-12.3); Monocytes Percent Auto 12.2 % (2-11); Neutrophils Absolute Auto 5.8 x10*3/uL (2.0-8.3); Neutrophils Percent Auto 71.9 % (45-73); Platelet Count 319 X10*3/uL (160-400); Red Blood Count 3.29 X10*6/uL (4.20-5.50); Red Cell Distribution Width 18.6 % (11.0-16.0); White Blood Count 8.1 X10*3/uL (4.8-10.8)
[2021-10-06 12:15] LABS: Alanine Aminotransferase 26 U/L (0-31); Albumin Level 2.7 g/dL (3.5-5.0); Alkaline Phosphatase 110 U/L (39-117); Anion Gap 15 (12-20); Aspartate Amino Transferase 30 U/L (5-31); Bilirubin Total 0.8 mg/dL (0.0-1.0); Blood Urea Nitrogen 20 mg/dL (9-16); Calcium 8.2 mg/dL (8.4-10.2); Carbon Dioxide 21 mmol/L (22-29); Chloride 108 mmol/L (96-108); Estimated Glomerular Filt Rate > 60; Glucose Random 113 mg/dL (60-115); Potassium 4.9 mmol/L (3.3-5.1); Sodium 139 mmol/L (135-145); Total Protein 5.6 g/dL (6.5-8.0)
[2021-10-10 08:51] LABS: CA 27.29 173 U/mL (<38)
== END 2021-10-06 08:24 | disposition home or self-care (01) ==
LOC: HO.HMGCLDS 08:23
PROVIDERS: PCP Internal Medicine; Visit Provider Internal Medicine
DX: C50.919 Malignant neoplasm of unspecified site of unspecified female breast (principal)
CPT/HCPCS: 36415; 80053; 85025; 86300

== ENCOUNTER 2021-10-27 08:33 | Outpatient (REF) | payer MEDICARE, MEDICAID, SELFPAY ==
[2021-10-27 11:21] LABS: MANUAL DIFF FLAG NO
[2021-10-27 11:29] LABS: Basophils Absolute Auto 0.1 X10*3/uL (0.0-0.2); Basophils Percent Auto 0.8 % (0-2); Eosinophils Percent Auto 0.3 % (0-4); Hematocrit 33.2 % (37.0-47.0); Hemoglobin 10.1 g/dl (12.0-16.0); Imm Gran Abs Auto 0.07 X10*3/uL (0.00-0.03); Imm Gran Pct Auto 0.9 % (0.0-0.4); Lymphocytes Absolute Auto 1.1 X10*3/uL (1.2-4.9); Lymphocytes Percent Auto 13.9 % (20-40); Mean Corpuscular HGB Conc 30.4 g/dl (31.0-35.0); Mean Corpuscular Hemoglobin 29.7 pg (27.0-33.0); Mean Corpuscular Volume 97.6 fL (80.0-98.0); Mean Platelet Volume 10.2 fL (9.4-12.3); Neutrophils Absolute Auto 5.7 x10*3/uL (2.0-8.3); Neutrophils Percent Auto 72.1 % (45-73); Platelet Count 285 X10*3/uL (160-400); Red Cell Distribution Width 19.6 % (11.0-16.0); White Blood Count 7.9 X10*3/uL (4.8-10.8)
[2021-10-27 11:42] LABS: Alanine Aminotransferase 14 U/L (0-31); Alkaline Phosphatase 98 U/L (39-117); Anion Gap 12 (12-20); Aspartate Amino Transferase 18 U/L (5-31); Bilirubin Total 0.9 mg/dL (0.0-1.0); Blood Urea Nitrogen 17 mg/dL (9-16); Calcium 8.4 mg/dL (8.4-10.2); Carbon Dioxide 25 mmol/L (22-29); Chloride 109 mmol/L (96-108); Estimated Glomerular Filt Rate > 60; Glucose Random 107 mg/dL (60-115); Potassium 4.5 mmol/L (3.3-5.1); Sodium 141 mmol/L (135-145); Total Protein 5.2 g/dL (6.5-8.0)
== END 2021-10-27 08:34 | disposition home or self-care (01) ==
LOC: HO.HMGCLDS 08:33
PROVIDERS: PCP Internal Medicine; Visit Provider Internal Medicine
DX: C50.919 Malignant neoplasm of unspecified site of unspecified female breast (principal); Z20.822 Contact with and (suspected) exposure to COVID-19
CPT/HCPCS: 36415; 80053; 85025

== ENCOUNTER 2021-11-14 14:15 | Outpatient (REF) | payer MEDICARE, MEDICAID, SELFPAY ==
[2021-11-14 16:22] LABS: Basophils Percent Auto 0.3 % (0-2); Hematocrit 34.8 % (37.0-47.0); Hemoglobin 10.6 g/dl (12.0-16.0); Imm Gran Abs Auto 0.29 X10*3/uL (0.00-0.03); Imm Gran Pct Auto 1.9 % (0.0-0.4); Lymphocytes Absolute Auto 0.8 X10*3/uL (1.2-4.9); Lymphocytes Percent Auto 5.4 % (20-40); MANUAL DIFF FLAG SCAN; Mean Corpuscular HGB Conc 30.5 g/dl (31.0-35.0); Mean Corpuscular Hemoglobin 29.4 pg (27.0-33.0); Mean Corpuscular Volume 96.7 fL (80.0-98.0); Mean Platelet Volume 10.4 fL (9.4-12.3); Monocytes Absolute Auto 0.2 X10*3/uL (0.1-1.2); Neutrophils Absolute Auto 14.1 x10*3/uL (2.0-8.3); Neutrophils Percent Auto 91.4 % (45-73); Platelet Count 272 X10*3/uL (160-400); Red Cell Distribution Width 20.3 % (11.0-16.0); SCAN SMEAR FLAG 1; White Blood Count 15.5 X10*3/uL (4.8-10.8)
[2021-11-14 16:41] LABS: SLIDE REVIEW VERIFIED
[2021-11-14 16:43] LABS: Alanine Aminotransferase 18 U/L (0-31); Alkaline Phosphatase 102 U/L (39-117); Anion Gap 15 (12-20); Aspartate Amino Transferase 22 U/L (5-31); Bilirubin Total 0.5 mg/dL (0.0-1.0); Blood Urea Nitrogen 15 mg/dL (9-16); Calcium 8.4 mg/dL (8.4-10.2); Carbon Dioxide 23 mmol/L (22-29); Chloride 109 mmol/L (96-108); Estimated Glomerular Filt Rate > 60; Glucose Random 176 mg/dL (60-115); Potassium 4.7 mmol/L (3.3-5.1); Sodium 142 mmol/L (135-145); Total Protein 5.3 g/dL (6.5-8.0)
== END 2021-11-14 14:16 | disposition home or self-care (01) ==
LOC: HO.HMGCLDS 14:15
PROVIDERS: PCP Internal Medicine; Visit Provider Internal Medicine
DX: C50.919 Malignant neoplasm of unspecified site of unspecified female breast (principal)
CPT/HCPCS: 36415; 80053; 85025

== ENCOUNTER 2021-12-08 13:54 | Outpatient (REF) | payer MEDICARE, MEDICAID, SELFPAY ==
[2021-12-08 16:43] LABS: Basophils Percent Auto 0.1 % (0-2); Hematocrit 43.4 % (37.0-47.0); Hemoglobin 13.9 g/dl (12.0-16.0); Imm Gran Abs Auto 0.09 X10*3/uL (0.00-0.03); Imm Gran Pct Auto 0.7 % (0.0-0.4); Lymphocytes Absolute Auto 0.3 X10*3/uL (1.2-4.9); Lymphocytes Percent Auto 2.5 % (20-40); MANUAL DIFF FLAG SCAN; Mean Corpuscular Hemoglobin 31.5 pg (27.0-33.0); Mean Corpuscular Volume 98.4 fL (80.0-98.0); Monocytes Absolute Auto 0.2 X10*3/uL (0.1-1.2); Monocytes Percent Auto 1.2 % (2-11); Neutrophils Absolute Auto 11.8 x10*3/uL (2.0-8.3); Neutrophils Percent Auto 95.5 % (45-73); Red Blood Count 4.41 X10*6/uL (4.20-5.50); Red Cell Distribution Width 19.4 % (11.0-16.0); SCAN SMEAR FLAG 1; White Blood Count 12.3 X10*3/uL (4.8-10.8)
[2021-12-08 16:48] LABS: Alanine Aminotransferase 52 U/L (0-31); Albumin Level 3.1 g/dL (3.5-5.0); Alkaline Phosphatase 87 U/L (39-117); Anion Gap 13 (12-20); Aspartate Amino Transferase 29 U/L (5-31); Bilirubin Total 0.8 mg/dL (0.0-1.0); Blood Urea Nitrogen 33 mg/dL (9-16); Calcium 8.3 mg/dL (8.4-10.2); Carbon Dioxide 24 mmol/L (22-29); Chloride 107 mmol/L (96-108); Estimated Glomerular Filt Rate > 60; Glucose Random 188 mg/dL (60-115); Potassium 4.5 mmol/L (3.3-5.1); Sodium 139 mmol/L (135-145)
[2021-12-08 17:19] LABS: Platelet Count 144 X10*3/uL (160-400)
[2021-12-08 17:20] LABS: SLIDE REVIEW VERIFIED
== END 2021-12-08 13:55 | disposition home or self-care (01) ==
LOC: HO.HMGCLDS 13:54
PROVIDERS: Visit Provider Internal Medicine
DX: C50.919 Malignant neoplasm of unspecified site of unspecified female breast (principal)
CPT/HCPCS: 36415; 80053; 85025

== ENCOUNTER 2021-12-26 12:28 | Outpatient (REF) | payer MEDICARE, MEDICAID, SELFPAY ==
[2021-12-26 14:03] LABS: Hematocrit 46.5 % (37.0-47.0); Hemoglobin 15.5 g/dl (12.0-16.0); Mean Corpuscular HGB Conc 33.3 g/dl (31.0-35.0); Mean Corpuscular Hemoglobin 31.6 pg (27.0-33.0); Mean Corpuscular Volume 94.9 fL (80.0-98.0); Red Cell Distribution Width 17.6 % (11.0-16.0); White Blood Count 4.2 X10*3/uL (4.8-10.8)
[2021-12-26 14:04] LABS: Platelet Count 54 X10*3/uL (160-400)
[2021-12-26 14:05] LABS: Alanine Aminotransferase 83 U/L (0-31); Albumin Level 2.6 g/dL (3.5-5.0); Alkaline Phosphatase 159 U/L (39-117); Anion Gap 16 (12-20); Aspartate Amino Transferase 75 U/L (5-31); Bilirubin Total 2.2 mg/dL (0.0-1.0); Blood Urea Nitrogen 45 mg/dL (9-16); Carbon Dioxide 23 mmol/L (22-29); Chloride 100 mmol/L (96-108); Estimated Glomerular Filt Rate 33; Glucose Random 115 mg/dL (60-115); Potassium 5.3 mmol/L (3.3-5.1); Sodium 134 mmol/L (135-145); Total Protein 4.6 g/dL (6.5-8.0)
[2021-12-26 14:32] LABS: Band Neutrophils Percent 10 % (3-5); Lymphocytes Absolute Manual 0.2 X10*3/uL (1.2-4.9); Lymphocytes Percent Manual 5 % (20-40); Neutrophils Percent Manual 85 % (45-73)
[2021-12-26 14:33] LABS: Acanthocytes 3+ (>5) /OIF; RBC Morphology NOTED
[2021-12-26 14:34] LABS: Platelet Estimate DECREASED (NORMAL); Platelet Morphology Comment NORMAL
[2021-12-29 09:01] LABS: CA 27.29 1092 U/mL (<38)
== END 2021-12-26 12:29 | disposition home or self-care (01) ==
LOC: HO.HMGCLDS 12:28
PROVIDERS: Visit Provider Internal Medicine
DX: C50.919 Malignant neoplasm of unspecified site of unspecified female breast (principal)
CPT/HCPCS: 36415; 80053; 85007; 85025; 85027; 86300

== ENCOUNTER 2021-12-29 14:10 | Inpatient (IN) | payer MEDICARE, MEDICAID, SELFPAY ==
--- NOTE | ~2021-12-29 | CT_ITS ---
EXAMINATION: CT ABDOMEN WITHOUT CONTRAST CLINICAL INFORMATION: Follow-up liver lesions COMPARISON: Previous ultrasound 12/29/2020 and PET/CT July 2020 TECHNIQUE: Contiguous axial thin section helical images of the abdomen were performed without contrast. The data set was reformatted in the coronal and sagittal planes and reviewed on an independent workstation. This CT examination was performed using dose optimization techniques as appropriate, variously including the following: *Automated exposure control *Adjustment of mA and/or kV according to patient size (this includes techniques or standardized protocols for targeted exams where dose is matched to indication/reason for exam; i.e. extremities or head) *Use of iterative reconstruction technique DLP: 412 mGy-cm FINDINGS: LIVER, GALLBLADDER, BILIARY TREE: There are innumerable low-attenuation liver lesions. This is increased from previous PET/CT scan July 2020 probably represents metastatic disease. The gallbladder is contracted. There is no biliary duct dilatation. PANCREAS: Unremarkable SPLEEN: There is a 2 cm low-attenuation lesion in the spleen that is new. ADRENAL GLANDS AND KIDNEYS: Unremarkable BOWEL LOOPS: There is question of mild wall thickening of the colon versus changes due to underdistention. There is a large amount of ascites. LYMPH NODES: Normal. VASCULAR: There is evidence of atherosclerotic disease. No aneurysm is seen. Vessel patency cannot be assessed without contrast. BONES: There is diffuse sclerotic bony metastatic disease. CT/CT abdomen wo con IMPRESSION: Innumerable new low-attenuation liver lesions and new 2 cm splenic lesion suggestive of metastatic disease. New large amount of ascites. Diffuse sclerotic metastatic disease to the bones. No fracture. Question mild wall thickening of the colon/colitis versus changes due to underdistention. Fleischner guidelines were followed.
--- NOTE | ~2021-12-29 | CT_ITS ---
EXAMINATION: CT CHEST WITHOUT CONTRAST CLINICAL INFORMATION: Follow-up abnormal chest x-ray COMPARISON: Previous chest CT March 2020, chest x-ray most recent from yesterday and PET/CT July 2020 TECHNIQUE: Multidetector volumetric CT imaging of the chest was done. Axial MIP volume rendering provided. Sagittal and coronal reformatted images were obtained. This CT examination was performed using dose optimization techniques as appropriate, variously including the following: *Automated exposure control *Adjustment of mA and/or kV according to patient size (this includes techniques or standardized protocols for targeted exams where dose is matched to indication/reason for exam; i.e. extremities or head) *Use of iterative reconstruction technique DLP: 193 mGy-cm FINDINGS: LUNGS: There is volume loss to the right hemithorax with shift of the central mediastinal structures to the right. There is atelectasis or infiltrate seen in the right middle and right lower lobes. There is atelectasis or small infiltrate seen in the left upper lobe and anterior left lower lobe. MEDIASTINUM: The heart does not appear enlarged. There is coronary artery calcification. There is a very small pericardial effusion. There are no enlarged hilar or mediastinal lymph nodes. There are small calcified left hilar lymph nodes. PLEURA: There is a loculated right hydropneumothorax. There are air collection seen in the adjacent right lateral chest wall. Differential would include postoperative surgical changes from recent thoracentesis and trapped lung, bronchopleural fistula and infection. There is a large left pleural effusion. This is new or increased from previous exams. AXILLA: No lymphadenopathy. UPPER ABDOMEN: See abdominal CT report done the same day. OSSEOUS STRUCTURES: Diffuse sclerotic bony disease. No fracture is seen. CT/CT chest wo con IMPRESSION: Loculated right hydropneumothorax. There are adjacent air collections in the right lateral chest wall. Differential would include post surgical or procedural changes related to thoracentesis and trapped lung, bronchopleural fistula and infection/empyema. New large left pleural effusion. Atelectasis or consolidation in the right middle and right lower lobes, right upper lobe and anterior left lower lobe. Diffuse sclerotic bone disease. Fleischner guidelines were followed.
--- NOTE | ~2021-12-29 | US_ITS ---
EXAMINATION: US ABDOMEN LIMITED CLINICAL INFORMATION: New onset elevated LFTs. COMPARISON: PET/CT 08/20/2020. TECHNIQUE: Real-time imaging of the right upper quadrant abdominal viscera. FINDINGS: PANCREAS: Obscured by bowel gas. LIVER: Multiple hepatic masses are seen, the largest in the right lobe measures 1.4 cm. The largest in the left lobe measures 1.4 cm. This is difficult to compare to prior PET/CT, however disease burden appears increased. No biliary ductal dilatation. GALLBLADDER: Mildly thickened gallbladder wall is nonspecific in the presence of ascites. No gallstones. COMMON BILE DUCT: Normal in caliber measuring 0.6 cm in diameter. RIGHT KIDNEY: Normal. No hydronephrosis. No renal calculi or focal parenchymal lesions. The kidney measures 9.4 cm in maximum dimension. FREE FLUID: Small volume of simple appearing ascites. US/US abdomen limited IMPRESSION: Metastatic disease in the liver. Difficult to compare to prior PET/CT but likely increase in metastatic burden. No biliary ductal dilatation. Small volume of simple appearing ascites.
--- NOTE | ~2021-12-29 | XR_ITS ---
EXAMINATION: XR CHEST CLINICAL INFORMATION: History of pleural effusion COMPARISON: 09/16/2021 TECHNIQUE: Frontal view of the chest was obtained. FINDINGS: The previously seen loculated fluid collection along the right lateral chest wall is air-filled consistent with a loculated pneumothorax (potentially ex vacuo thorax if a procedure has been performed). There is new air in the subcutaneous tissues lateral to the right chest wall which may indicate a fistula to the pleural cavity. The left lung is clear. The cardiomediastinal silhouette is stable. Osseous metastatic disease is grossly stable. XR/XR chest 1V IMPRESSION: Air now replaces fluid in the previously described loculated pleural effusion in the right chest (this may be an ex-vacuo thorax if a procedure has been performed). There is new air in the subcutaneous soft tissues lateral to the right chest wall at the same level which may indicate a fistula to the pleural cavity and/or to the skin. Correlate with recent procedural history.
[2021-12-29 14:24] VITALS: BP 111/64; PULSE 112; RESP 18; TEMP 36.6; O2SAT 94; BMI 31.4
--- NOTE | 2021-12-29 14:48 | ED_ITS ---
HPI - General Adult General Chief complaint: General Medical Stated complaint: Abdominal Swelling Time Seen by Provider: 12/29/21 14:27 Source: patient Mode of arrival: ambulatory Limitations: no limitations History of Present Illness HPI narrative: Patient comes to emergency room from Dr. Shafer's office from oncology. Patient has history of metastatic breast cancer, patient is currently on oral chemotherapy. Patient has been complaining of worsening abdominal distention secondary to ascites. Patient had labs done several days ago, shows patient has acute kidney injury. Patient also complaining of shortness of breath. Patient is known to have prior pleural effusions for which patient had a pleurex cat heter. Last week, patient started having diarrhea, no nausea vomiting, no fever or chills. Patient has noticed new bilateral lower extremity swelling, no calf pain. Related Data Home Medications Medication Instructions Recorded Confirmed cyanocobalamin (vitamin B-12) 500 500 mcg PO DAILY 08/12/20 12/29/21 mcg tablet folic acid 1 mg tablet 1 mg PO DAILY 09/17/21 12/29/21 prednisone 20 mg tablet 3 tab PO DAILY 12/29/21 12/29/21 sulfamethoxazole 800 1 tab PO 3XW 12/29/21 12/29/21 mg-trimethoprim 160 mg tablet Previous Rx's Medication Instructions Recorded fluticasone propionate 50 1 spray INTRANASAL QAM #16 g 08/28/21 mcg/actuation nasal spray,suspension omeprazole 40 mg capsule,delayed 40 mg PO DAILY #90 cap 08/28/21 release calcium carbonate 600 mg calcium 600 mg PO BID #60 tab 10/08/21 (1,500 mg) tablet (Calcium) zolpidem 10 mg tablet 10 mg PO BEDTIME PRN #30 tab 12/02/21 abemaciclib 200 mg tablet 200 mg PO BID #60 tab 12/08/21 (Verzenio) Allergies Allergy/AdvReac Type Severity Reaction Status Date / Time codeine [Codeine] Allergy Unknown NAUSEA & Verified 11/18/21 15:53 VOMITING, Codeine Phosphate Allergy Unknown GI upset Verified 11/18/21 15:53 Review of Systems Review of Systems: Constitutional : No Weight loss, No Fever, No Chills, No Night Sweats, No Fatigue, No Malaise ENT/Mouth : No Hearing loss, No Ear Pain, No Nasal Congestion, No Sinus Pain, No Hoarseness, No sore throat, No Rhinorrhea, No Swallowing Difficulty Eyes: No Eye Pain, No Swelling, No Redness, No Foreign Body, No Discharge, No Vision Changes Cardiovascular : No Chest Pain, No SOB, No Dyspnea on Exertion, No Orthopnea, No Edema, No Palpitations Respiratory : No Cough, No Sputum, No Wheezing, No Smoke Exposure, complaining of worsening shortness of breath Gastrointestinal : Complaining of Nausea, No Vomiting, complaining of Diarrhea, No Constipation, complaining of abdominal distension which has worsened over the last week. Genitourinary : no irregular bleeding, No Dysuria, No Urinary Frequency, No Hematuria, No Urinary Incontinence, No Urgency, No Flank Pain, No Urinary Flow Changes, No Hesitancy Musculoskeletal : No joint pain, No Myalgias, complaining of lower extremity edema Skin : No Skin Lesions, No rash Neuro : No Weakness, No Numbness, No Paresthesias, No Loss of Consciousness, No Dizziness, No Headache Psych : No Anxiety/Panic, No Depression, No SI/HI/AH/VH, No Social Issues, Heme/Lymph: No Bruising, No Bleeding,No Lymphadenopathy Endocrine : No Polyuria, No Polydipsia, No Temperature Intolerance PMFSH Past Medical History Medical History Breast cancer Chronic insomnia Coronary heart disease Dyslipidemia Essential hypertension Hypertension Vertigo Surgical History H/O: hysterectomy Family History Family History Mother Hypertension Diabetes Paternal Aunt Cancer Social History Social History (Updated 11/18/21 @ 15:52 by Hawa Luibn) Household Members: Family Alcohol intake: never Patient Tobacco Use Status: Never used Tobacco Use of substances other than those prescribed or required for medical reasons: No Advance Directives: No Advance Directives Information Provided: No Advance Directives Date on File: 08/13/20 service: No Current occupational status: employed and unemployed Physical Exam ED Vital Signs: Vital Signs - 24 hr 12/29/21 14:24 12/29/21 16:50 Temperature 97.8 F 97.8 F Pulse Rate 112 H 109 H Respiratory Rate 18 22 H Blood Pressure 111/64 110/58 L Pulse Oximetry 94 95 BMI result Body Mass Index 31.4 Const Other: Appearance: Alert. Oriented X3. No acute distress. Eyes: Pupils equal, round and reactive to light. ENT: Pharynx normal. Neck: Normal inspection. Neck supple. No lymph nodes noted. No crepitus CVS: Normal heart rate and rhythm. Pulses normal. Normal S1 and S2 Respiratory: No respiratory distress. Breath sounds normal. No Wheezing. No rales Abdomen: Soft , uncomfortable to palpation, no significant tenderness. Abdomen is slightly distended. Bedside ultrasound shows a small amount of ascites in the abdomen. Skin: Skin warm and dry. Multiple ecchymoses in upper extremities. Extremities: No lower extremity edema. No lower extremity edema. No Lacerations. No Rash Neuro: Oriented X 3. No motor deficit. No sensory deficit. Moving all exter mities. No slurred speech. Course Course Course Narrative: Patient's DWIGHT likely secondary to diarrhea. Patient will be empirically treated with cefepime. I discussed the patient with nurse practitioner Gerry. Patient will be admitted. On bedside ultrasound, patient does not have a large amount of fluid. It is possible the patient may not need a paracentesis. To be determined tomorrow. Medical Decision Making Lab Data Result diagrams: 12/29/21 15:57 12/29/21 15:57 Labs: Lab Results 12/29/21 12/29/21 12/29/21 Range/Units 15:57 15:57 15:57 WBC 2.7 L (4.8-10.8) X10*3/uL RBC 4.60 (4.20-5.50) X10*6/uL Hgb 14.5 (12.0-16.0) g/dl Hct 42.8 (37.0-47.0) % MCV 93.0 (80.0-98.0) fL MCH 31.5 (27.0-33.0) pg MCHC 33.9 (31.0-35.0) g/dl RDW 17.6 H (11.0-16.0) % Plt Count 31 L D (160-400) X10*3/uL MPV Not Reportable Immature Gran % (Auto) Cancelled Neut % (Auto) Cancelled Lymph % (Auto) Cancelled [place] % (Auto) Cancelled Eos % (Auto) Cancelled Baso % (Auto) Cancelled Lymph # (Auto) Cancelled [place] # (Auto) Cancelled Eos # (Auto) Cancelled Baso # (Auto) Cancelled Abs Immat Gran (auto) Cancelled Absolute Neuts (auto) Cancelled Absolute Nucleated RBC 0.000 (0.0-0.012) X10*3/uL Nucleated RBC % (auto) 0.0 (0.0-0.2) /100WBC Neutrophils % (Manual) 79 H (45-73) % Band Neutrophils % 14 H (3-5) % Lymphocytes % (Manual) 4 L (20-40) % Monocytes % (Manual) 2 (2-11) % Metamyelocytes % 1 % Abs Neuts (Manual) 2.5 (2.0-8.3) X10*3/uL Lymphocytes # (Manual) 0.1 L (1.2-4.9) X10*3/uL Monocytes # (Manual) 0.1 (0.1-1.2) X10*3/uL Dohle Bodies PRESENT Platelet Estimate DECREASED (NORMAL) Plt Morphology Comment NORM RBC Morphology NOTED [place] Cells 1+ (0-2) /OIF Schistocytes 1+ (0-2) /OIF PT (9.9-13.0) SEC INR (0.9-1.1) APTT (24.1-38.0) SEC Sodium 135 (135-145) mmol/L Potassium 5.3 H (3.3-5.1) mmol/L Chloride 102 (96-108) mmol/L Carbon Dioxide 23 (22-29) mmol/L Anion Gap 15 (12-20) BUN 57 H (9-16) mg/dL Creatinine 1.71 H (0.5-1.4) mg/dL Estim Creat Clear Calc 27.8 Estimated GFR 29 Random Glucose 131 H (60-115) mg/dL Lactic Acid (0.5-2.0) mmol/L Calcium 8.5 (8.4-10.2) mg/dL Magnesium 2.3 (1.6-2.6) mg/dL Total Bilirubin 2.7 H (0.0-1.0) mg/dL Direct Bilirubin 1.6 H (0.0-0.5) mg/dL AST 71 H (5-31) U/L ALT 92 H (0-31) U/L Alkaline Phosphatase 216 H D (39-117) U/L B-Natriuretic Peptide (<100) pg/mL Total Protein 4.7 L (6.5-8.0) g/dL Albumin 2.8 L (3.5-5.0) g/dL Lipase 21 (8-78) U/L COVID-19 ([facility]) Negative (Negative) COVID-19 Clin Com See Note 12/29/21 12/29/21 12/29/21 Range/Units 15:57 15:57 15:57 WBC (4.8-10.8) X10*3/uL RBC (4.20-5.50) X10*6/uL Hgb (12.0-16.0) g/dl Hct (37.0-47.0) % MCV (80.0-98.0) fL MCH (27.0-33.0) pg MCHC (31.0-35.0) g/dl RDW (11.0-16.0) % Plt Count (160-400) X10*3/uL MPV Immature Gran % (Auto) Neut % (Auto) Lymph % (Auto) [place] % (Auto) Eos % (Auto) Baso % (Auto) Lymph # (Auto) [place] # (Auto) Eos # (Auto) Baso # (Auto) Abs Immat Gran (auto) Absolute Neuts (auto) Absolute Nucleated RBC (0.0-0.012) X10*3/uL Nucleated RBC % (auto) (0.0-0.2) /100WBC Neutrophils % (Manual) (45-73) % Band Neutrophils % (3-5) % Lymphocytes % (Manual) (20-40) % Monocytes % (Manual) (2-11) % Metamyelocytes % % Abs Neuts (Manual) (2.0-8.3) X10*3/uL Lymphocytes # (Manual) (1.2-4.9) X10*3/uL Monocytes # (Manual) (0.1-1.2) X10*3/uL Dohle Bodies Platelet Estimate (NORMAL) Plt Morphology Comment RBC Morphology [place] Cells /OIF Schistocytes /OIF PT 11.9 (9.9-13.0) SEC INR 1.0 (0.9-1.1) APTT 23.0 L (24.1-38.0) SEC Sodium (135-145) mmol/L Potassium (3.3-5.1) mmol/L Chloride (96-108) mmol/L Carbon Dioxide (22-29) mmol/L Anion Gap (12-20) BUN (9-16) mg/dL Creatinine (0.5-1.4) mg/dL Estim Creat Clear Calc Estimated GFR Random Glucose (60-115) mg/dL Lactic Acid 1.6 (0.5-2.0) mmol/L Calcium (8.4-10.2) mg/dL Magnesium (1.6-2.6) mg/dL Total Bilirubin (0.0-1.0) mg/dL Direct Bilirubin (0.0-0.5) mg/dL AST (5-31) U/L ALT (0-31) U/L Alkaline Phosphatase (39-117) U/L B-Natriuretic Peptide 229 H (<100) pg/mL Total Protein (6.5-8.0) g/dL Albumin (3.5-5.0) g/dL Lipase (8-78) U/L COVID-19 ([facility]) (Negative) COVID-19 Clin Com Imaging Data Chest x-ray: Radiologist's impression: The previously seen loculated fluid collection along the right lateral chest wall is air-filled consistent with a loculated pneumothorax (potentially ex vacuo thorax if a procedure has been performed). There is new air in the subcutaneous tissues lateral to the right chest wall which may indicate a fistula to the pleural cavity. The left lung is clear. The cardiomediastinal silhouette is stable. Osseous metastatic disease is grossly stable. XR/XR chest 1V IMPRESSION: Air now replaces fluid in the previously described loculated pleural effusion in the right chest (this may be an ex-vacuo thorax if a procedure has been performed). There is new air in the subcutaneous soft tissues lateral to the right chest wall at the same level which may indicate a fistula to the pleural cavity and/or to the skin. Correlate with recent procedural history. US - abdomen: Radiologist's impression: FINDINGS: PANCREAS: Obscured by bowel gas. LIVER: Multiple hepatic masses are seen, the largest in the right lobe measures 1.4 cm. The largest in the left lobe measures 1.4 cm. This is difficult to compare to prior PET/CT, however disease burden appears increased. No biliary ductal dilatation. GALLBLADDER: Mildly thickened gallbladder wall is nonspecific in the presence of ascites. No gallstones. COMMON BILE DUCT: Normal in caliber measuring 0.6 cm in diameter. RIGHT KIDNEY: Normal. No hydronephrosis. No renal calculi or focal parenchymal lesions. The kidney measures 9.4 cm in maximum dimension. FREE FLUID: Small volume of simple appearing ascites. US/US abdomen limited IMPRESSION: Metastatic disease in the liver. Difficult to compare to prior PET/CT but likely increase in metastatic burden. No biliary ductal dilatation. ? Small volume of simple appearing ascites. Discharge Plan Discharge Clinical Impression: Acute kidney injury, Thrombocytopenia Patient Disposition: Admitted As Inpatient Prescriptions: No Action fluticasone propionate 50 mcg/actuation spray,suspension 1 spray intranasal QAM Qty: 16 3RF omeprazole 40 mg capsule,delayed release(DR/EC) 40 mg PO DAILY Qty: 90 3RF zolpidem 10 mg tablet 10 mg PO BEDTIME PRN (Reason: insomnia) Qty: 30 0RF cyanocobalamin (vitamin B-12) 500 mcg Tablet 500 mcg PO DAILY 0RF calcium carbonate [Calcium 600] 600 mg calcium (1,500 mg) Tablet 600 mg PO BID Qty: 60 5RF Verzenio 200 mg Tablet 200 mg PO BID Qty: 60 3RF prednisone 20 mg tablet 3 tab PO DAILY 0RF sulfamethoxazole-trimethoprim 800-160 mg tablet 1 tab PO 3XW 0RF folic acid 1 mg tablet 1 mg PO DAILY 0RF
--- NOTE | 2021-12-29 15:15 | PC.NURSE ---
pt has a delay in having labs drawn and IV inserted as first iv was unsuccessful and ultrasound came in to perform us at bedside.
[2021-12-29] MEDS: 0.9 % Sodium Chloride 1,000 ML 999 ML IVCONT ×2 (15:59→16:56)
--- NOTE | 2021-12-29 15:59 | PC.NURSE ---
iv inserted, labs drawn,covid swab obtained, media monitor sinus tach, ivf hanging per order, will continue to monitor.
[2021-12-29 16:18] LABS: Hemoglobin 14.5 g/dl (12.0-16.0); Mean Corpuscular Hemoglobin 31.5 pg (27.0-33.0)
[2021-12-29 16:20] LABS: Hematocrit 42.8 % (37.0-47.0); Mean Corpuscular HGB Conc 33.9 g/dl (31.0-35.0); Red Cell Distribution Width 17.6 % (11.0-16.0); White Blood Count 2.7 X10*3/uL (4.8-10.8)
[2021-12-29 16:22] LABS: Lactic Acid 1.6 mmol/L (0.5-2.0)
[2021-12-29 16:26] LABS: PLT ABN DIST 1; Platelet Count 31 X10*3/uL (160-400)
[2021-12-29 16:27] LABS: Alanine Aminotransferase 92 U/L (0-31); Albumin Level 2.8 g/dL (3.5-5.0); Alkaline Phosphatase 216 U/L (39-117); Anion Gap 15 (12-20); Aspartate Amino Transferase 71 U/L (5-31); Bilirubin Direct 1.6 mg/dL (0.0-0.5); Bilirubin Total 2.7 mg/dL (0.0-1.0); Blood Urea Nitrogen 57 mg/dL (9-16); COVID-19 Test Negative (Negative); Calcium 8.5 mg/dL (8.4-10.2); Carbon Dioxide 23 mmol/L (22-29); Chloride 102 mmol/L (96-108); Creatinine Clr Calc Pharmacy 27.8; Estimated Glomerular Filt Rate 29; Glucose Random 131 mg/dL (60-115); Lipase 21 U/L (8-78); Magnesium 2.3 mg/dL (1.6-2.6); Potassium 5.3 mmol/L (3.3-5.1); Sodium 135 mmol/L (135-145); Total Protein 4.7 g/dL (6.5-8.0)
[2021-12-29 16:28] LABS: Prothrombin Time 11.9 SEC (9.9-13.0)
[2021-12-29 16:33] LABS: B Type Natriuretic Peptide 229 pg/mL (<100)
[2021-12-29 16:50] VITALS: BP 110/58; PULSE 109; RESP 22; TEMP 36.6; O2SAT 95
[2021-12-29 16:57] LABS: Band Neutrophils Percent 14 % (3-5); Burr Cells 1+ (0-2) /OIF; Lymphocytes Absolute Manual 0.1 X10*3/uL (1.2-4.9); Lymphocytes Percent Manual 4 % (20-40); Metamyelocytes Percent 1 %; Monocytes Absolute Manual 0.1 X10*3/uL (0.1-1.2); Monocytes Percent Manual 2 % (2-11); Neutrophils Absolute Manual 2.5 X10*3/uL (2.0-8.3); Neutrophils Percent Manual 79 % (45-73); RBC Morphology NOTED; Schistocytes 1+ (0-2) /OIF
[2021-12-29 16:59] LABS: Platelet Estimate DECREASED (NORMAL)
[2021-12-29 17:01] LABS: Dohle Bodies PRESENT; Platelet Morphology Comment NORM
--- NOTE | 2021-12-29 17:14 | PC.NURSE ---
flds hung per provider order, vss, pt requested warm blanket, will continue to monitor.
--- NOTE | 2021-12-29 17:28 | P.HPHOSP_ITS ---
History of Present Illness Date of Service: 12/29/21 <Shira Garrett NP - Last Filed: 12/29/21 18:08> Chief Complaint: abdominal distension <Shira Garrett NP - Last Filed: 12/29/21 18:08> 76 year old women with hx of breast cancer currently undergoing chemotherapy. Sent by Dr. Shafer for worsening abdominal distension and pressure. She was seen in the office today. she reported she has been having diarrhea pretty consistently the last week. She denied fever, chills, nausea, vomiting, recent travel, sick contacts. In the ED, abd us showed small amount of ascites also metastatic disease to liver. She has leukopenia, tachycardia, tachypnea. Creatinine is noted to be elevated 1.71, potassium 5.3, platelet count 3.1. In the ER she was given a dose of cefepime and 2 L of IV fluids. She will be admitted for further management and treatment of electrolyte abnormality and abdominal distension <Shira Garrett NP - Last Filed: 12/29/21 18:08> Review of Systems Review of Systems: Denies any recent fever chills or decrease in appetite respiratory denies any shortness of breath coverage production cardiovascular Denies chest pain gastrointestinal See HPI genitourinary denies any dysuria frequency or hematuria musculoskeletal denies any joint pain or swelling neuropsych denies any weakness or seizures all other systems reviewed are negative <Shira Garrett NP - Last Filed: 12/29/21 18:08> [facility] Medical History: Medical History Breast cancer Chronic insomnia Coronary heart disease Dyslipidemia Essential hypertension Hypertension Vertigo <Shira Garrett NP - Last Filed: 12/29/21 18:08> Family History: Family History Mother Hypertension Diabetes Paternal Aunt Cancer <Shira Garrett NP - Last Filed: 12/29/21 18:08> Surgical History: Surgical History H/O: hysterectomy <Shira Garrett NP - Last Filed: 12/29/21 18:08> Social History: Social History (Updated 11/18/21 @ 15:52 by Hawa Lubin) Household Members: Family Alcohol intake: never Patient Tobacco Use Status: Never used Tobacco Use of substances other than those prescribed or required for medical reasons: No Advance Directives: Yes Advance Directives on File: Yes Advance Directives Date on File: 08/13/20 service: No Current occupational status: retired <Shira Garrett NP - Last Filed: 12/29/21 18:08> Meds Allergies/Adverse reactions: Allergies Allergy/AdvReac Type Severity Reaction Status Date / Time codeine [Codeine] Allergy Unknown NAUSEA & Verified 11/18/21 15:53 VOMITING, Codeine Phosphate Allergy Unknown GI upset Verified 11/18/21 15:53 <Shira Garrett NP - Last Filed: 12/29/21 18:08> Active Medications: Current Medications Sodium Chloride (Ns) 1,000 mls @ 999 mls/hr IVCONT .Q1H1M ONE Stop: 12/29/21 17:41 Last Admin: 12/29/21 16:56 Dose: 999 mls/hr Documented by: Pharmacy Consult (Consult Rx Perform Med Rec) 1 each MISCELLANE ONCE PRN PRN Reason: Consult order <Shira Garrett NP - Last Filed: 12/29/21 18:08> Home medications: Home Medications Medication Instructions Recorded Confirmed Last Taken Type cyanocobalamin (vitamin B-12) 500 500 mcg PO DAILY 08/12/20 12/29/21 Unknown History mcg tablet folic acid 1 mg tablet 1 mg PO DAILY 09/17/21 12/29/21 Unknown History prednisone 20 mg tablet 3 tab PO DAILY 12/29/21 12/29/21 Unknown History sulfamethoxazole 800 1 tab PO 3XW 12/29/21 12/29/21 Unknown History mg-trimethoprim 160 mg tablet <Shira Garrett NP - Last Filed: 12/29/21 18:08> Physical Exam Vital Signs and Narrative: Vital Signs: Last Vital Signs Temp 97.8 F 12/29/21 16:50 Pulse 109 H 12/29/21 16:50 Resp 22 H 12/29/21 16:50 BP 110/58 L 12/29/21 16:50 Pulse Ox 95 12/29/21 16:50 BMI result Body Mass Index 31.4 <Shira Garrett NP - Last Filed: 12/29/21 18:08> Appearing in no acute distress, pale head is normocephalic atraumatic eyes pupils are PERRLA sclera is anicteric mouth throat mucous membranes are intact and moist neck is supple no lymphadenopathy, no JVD noted lung sounds are clear to auscultation heart regular rate rhythm, clear S1, S2 positive bowel sounds, abdomen is soft, nontender, mildly distended neuro patient is alert x3, no focal deficits <Shira Garrett NP - Last Filed: 12/29/21 18:08> Results Labs CBC and Chem 7: : 12/30/21 05:59 12/30/21 05:59 <Shira Garrett NP - Last Filed: 12/29/21 18:08> Labs: Laboratory Results - last 24 hr 12/29/21 12/29/21 12/29/21 15:57 15:57 15:57 MCV 93.0 MCH 31.5 MCHC 33.9 RDW 17.6 H Plt Count 31 L D MPV Not Reportable Immature Gran % (Auto) Cancelled Neut % (Auto) Cancelled Lymph % (Auto) Cancelled [place] % (Auto) Cancelled Eos % (Auto) Cancelled Baso % (Auto) Cancelled Lymph # (Auto) Cancelled [place] # (Auto) Cancelled Eos # (Auto) Cancelled Baso # (Auto) Cancelled Abs Immat Gran (auto) Cancelled Absolute Neuts (auto) Cancelled Absolute Nucleated RBC 0.000 Nucleated RBC % (auto) 0.0 Neutrophils % (Manual) 79 H Band Neutrophils % 14 H Lymphocytes % (Manual) 4 L Monocytes % (Manual) 2 Metamyelocytes % 1 Abs Neuts (Manual) 2.5 Lymphocytes # (Manual) 0.1 L Monocytes # (Manual) 0.1 Dohle Bodies PRESENT Platelet Estimate DECREASED Plt Morphology Comment NORM RBC Morphology NOTED Yeaddiss Cells 1+ (0-2) Schistocytes 1+ (0-2) PT INR APTT Anion Gap 15 Estim Creat Clear Calc 27.8 Estimated GFR 29 Random Glucose 131 H Lactic Acid Calcium 8.5 Magnesium 2.3 Total Bilirubin 2.7 H Direct Bilirubin 1.6 H AST 71 H ALT 92 H Alkaline Phosphatase 216 H D B-Natriuretic Peptide Total Protein 4.7 L Albumin 2.8 L Lipase 21 COVID-19 ([facility]) Negative COVID-19 Clin Com See Note 12/29/21 12/29/21 12/29/21 15:57 15:57 15:57 MCV MCH MCHC RDW Plt Count MPV Immature Gran % (Auto) Neut % (Auto) Lymph % (Auto) [place] % (Auto) Eos % (Auto) Baso % (Auto) Lymph # (Auto) [place] # (Auto) Eos # (Auto) Baso # (Auto) Abs Immat Gran (auto) Absolute Neuts (auto) Absolute Nucleated RBC Nucleated RBC % (auto) Neutrophils % (Manual) Band Neutrophils % Lymphocytes % (Manual) Monocytes % (Manual) Metamyelocytes % Abs Neuts (Manual) Lymphocytes # (Manual) Monocytes # (Manual) Dohle Bodies Platelet Estimate Plt Morphology Comment RBC Morphology Yeaddiss Cells Schistocytes PT 11.9 INR 1.0 APTT 23.0 L Anion Gap Estim Creat Clear Calc Estimated GFR Random Glucose Lactic Acid 1.6 Calcium Magnesium Total Bilirubin Direct Bilirubin AST ALT Alkaline Phosphatase B-Natriuretic Peptide 229 H Total Protein Albumin Lipase COVID-19 ([facility]) COVID-19 Clin Com <Shira Garrett NP - Last Filed: 12/29/21 18:08> Imaging Radiologist's Impressions: Impressions Chest X-Ray 12/29/21 15:00 IMPRESSION: Air now replaces fluid in the previously described loculated pleural effusion in the right chest (this may be an ex-vacuo thorax if a procedure has been performed). There is new air in the subcutaneous soft tissues lateral to the right chest wall at the same level which may indicate a fistula to the pleural cavity and/or to the skin. Correlate with recent procedural history. Abdomen Ultrasound 12/29/21 15:41 IMPRESSION: Metastatic disease in the liver. Difficult to compare to prior PET/CT but likely increase in metastatic burden. No biliary ductal dilatation. Small volume of simple appearing ascites. <Shira Garrett NP - Last Filed: 12/29/21 18:08> Assessment and Plan (1) Metastatic breast cancer: Status: Chronic <MONICA Ballard Last Filed: 12/29/21 18:08> (2) Acute kidney injury: Status: Acute <Shira Garrett NP - Last Filed: 12/29/21 18:08> (3) Thrombocytopenia: Status: Acute <MONICA Ballard Last Filed: 12/29/21 18:08> (4) Leukopenia: Status: Acute <Shira Garrett NP - Last Filed: 12/29/21 18:08> Plan 76-year-old woman with history of breast cancer and now malignancy to the liver admitted with electrolyte abnormalities and DWIGHT. Abdominal distension. No pain, no infectious source Abdominal ultrasound shows small amount of ascites, likely unable to remove at this point Supportive care blood cx pending check ua DWIGHT. likely from fluid losses from diarrhea IV fluids Follow BMP Hyperkalemia. Lokelma Follow BMP Pancytopenia. Likely secondary to chemotherapy Follow CBC closely Monitor for any signs of bleeding in light of thrombocytopenia Breast ca with liver mets Onc consult DVT prophylaxis with mechanical compression boots due to thrombocytopenia Attending Dr. Garber Full code <Shira Garrett NP - Last Filed: 12/29/21 18:08> 76-year-old woman with history of breast cancer and now malignancy to the liver admitted with electrolyte abnormalities and DWIGHT. Abdominal distension. No pain, no infectious source Abdominal ultrasound shows small amount of ascites, likely unable to remove at this point Supportive care blood cx pending check ua DWIGHT. likely from fluid losses from diarrhea IV fluids Follow BMP Hyperkalemia. Lokelma Follow BMP Pancytopenia. Likely secondary to chemotherapy Follow CBC closely Monitor for any signs of bleeding in light of thrombocytopenia Breast ca with liver mets Onc consult DVT prophylaxis with mechanical compression boots due to thrombocytopenia Attending Dr. Garber Full code Patient seen examined in the emergency room Agree with above treatment plan as per APC Reviewed chest x-ray that showed a replacing the fluid in the previously kerwin cribed loculated pleural effusion in the right chest with new air in the subcutaneous soft tissue lateral to the right chest wall, suggestive of a fistula to the pleural cavity and or to the skin According to patient she is being followed by unarmed security guard Dr. Kuo at [facility] [place] and is scheduled to see her on January 06, previously patient had a PleurX catheter to right chest that has been removed over a year ago, at present patient denies shortness of breath she has mild tachypnea o xygenation is stable will obtain a CT chest and pulmonary consultation. Will follow CBC and bmp closely with a diagnosis of leukopenia/thrombocytopenia, DWIGHT and hyperkalemia <Vargas Garber MD - Last Filed: 12/30/21 12:41> Quality Stroke Does the patient have a stroke diagnosis?: No <Shira Garrett NP - Last Filed: 12/29/21 18:08> VTE Prior VTE?: No <Shira Garrett NP - Last Filed: 12/29/21 18:08> VTE Risk Level:: Medical - moderate - high <Shira Garrett NP - Last Filed: 12/29/21 18:08> VTE Device Contraindication: N/A - Device Ordered <hSira Garrett NP - Last Filed: 12/29/21 18:08> VTE Drug Contraindication: Treatment Not Indicated <Shira Garrett NP - Last Filed: 12/29/21 18:08>
[2021-12-29] MEDS: cefEPime HCl 2 GM in 0.9 % Sodium Chloride 50 ML IV (17:50)
[2021-12-29 18:58] VITALS: BP 139/69; PULSE 111; RESP 14; O2SAT 94
[2021-12-29] MEDS: 0.9 % Sodium Chloride 1,000 ML 100 ML IVCONT (19:06)
--- NOTE | 2021-12-29 19:06 | PC.NURSE ---
patient a&ox3, vss, ivf hung per order, inventory audit clerk sinus tach, call powers within reach, will continue to monitor.
[2021-12-29 19:52] LABS: Appearance Urine HAZY; Color Urine DK YELLOW; Glucose Urine UA NEG (NEG); Leukocyte Esterase Urine 2+ (NEG); Nitrite Urine NEG (NEG); Specific Gravity - Urine 1.025 (1.005-1.025); UACC Culture Trigger YES; Urine Blood 3+ (NEG); Urine Ketones NEG (NEG); Urine Protein NEG (NEG-TRACE)
[2021-12-29 20:03] LABS: Bacteria Urine 1+ /LPF; Squamous Epithelial Cell Urine 2+ /LPF
[2021-12-29 20:04] LABS: Amorphous Sediment Urine TRACE /LPF; RBC Urine 30-49 /HPF (0)
--- NOTE | 2021-12-29 21:28 | PHA.MEDREC ---
Pharmacy Consult ? Medication Reconciliation Pharmacy has completed the medication reconciliation.
--- NOTE | 2021-12-29 22:35 | PC.NURSE ---
pt refusing to take off pants as well as brief she has on from home.
[2021-12-29 22:48] VITALS: BP 123/77; PULSE 99; RESP 16; O2SAT 94
[2021-12-29] MEDS: Zolpidem Tartrate 5 MG TABLET 10 MG PO (22:50)
--- NOTE | 2021-12-29 22:50 | PC.NURSE ---
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
[2021-12-30] VITALS (8 sets, daily range): BP systolic 103–145; BP diastolic 60–83; PULSE 97–107; RESP 16–35; TEMP 36.2–36.7; O2SAT 94–99
--- NOTE | 2021-12-30 00:07 | PM.EVENT ---
Event Note Date of Service: 12/30/21 Event Note: UA positive for infection abx started
--- NOTE | 2021-12-30 00:23 | PC.NURSE ---
Addendum entered by Vee Prince 12/30/21 00:25: This RN notes that pt has UTI on UA; Dr Archer made aware. This RN informs Dr Archer that pt rec'd cefepime prior to UA results. Dr Archer to order IV abx. Original Note: This RN to bedside. Pt aaox4, resting with eyes closed on stretcher in between care. Pt states I asked for the lights off and the curtain closed; that's all I want. This RN met pt's comfort needs at this time. Pt remains on bedside line fixer, VSS with tachypnea, RR 28 at this time. Pt stretcher low locked, rails raised, call powers within reach.
[2021-12-30] MEDS: cefTRIAXone sodium 1 GM in 0.9 % Sodium Chloride 50 ML IV (02:32)
[2021-12-30] MEDS: 0.9 % Sodium Chloride 1,000 ML 100 ML IVCONT ×2 (06:07→17:46)
--- NOTE | 2021-12-30 06:13 | PC.NURSE ---
This RN to bedside to medicate with IVF per MAR, pt awake, phleb at bedside collecting AM labs. Pt aaox4, endorses mild low back pain because of this damn stretcher. Pt O2 sat 91-92% on RA; pt placed on NC at 1LPM, maintaining sats >/= 94% at this time. Pt informed of plan for this RN to return with omeprazole per orders. Pt states ya know, I'm so fucking sick of this shit. This RN states I can understand that you're frustrated, but are you willing to tell me what's bothering you so that we can maybe make things better? Pt asks well what about the fucking steroid? Pt informed that steroid is scheduled for 0900. Pt expresses understanding but verbalizes frustration stating at home, I take them all at once. This rn educated pt regarding need for omeprazole to be given on an empty stomach prior to food and without other meds for optimal effectiveness. Pt expresses understanding, but requests that all meds be given together. Pt not given omeprazole at this time per pt's request; this RN to relay to oncoming nurse that pt's request is to cluster med administration for minimal rest disruptions.
[2021-12-30 06:46] LABS: Hemoglobin 12.9 g/dl (12.0-16.0); Mean Corpuscular HGB Conc 32.3 g/dl (31.0-35.0); Mean Corpuscular Hemoglobin 30.9 pg (27.0-33.0); Mean Corpuscular Volume 95.9 fL (80.0-98.0); Red Blood Count 4.17 X10*6/uL (4.20-5.50); Red Cell Distribution Width 17.7 % (11.0-16.0)
[2021-12-30 06:49] LABS: White Blood Count 2.3 X10*3/uL (4.8-10.8)
[2021-12-30 06:50] LABS: Alanine Aminotransferase 76 U/L (0-31); Albumin Level 2.2 g/dL (3.5-5.0); Alkaline Phosphatase 183 U/L (39-117); Anion Gap 12 (12-20); Aspartate Amino Transferase 67 U/L (5-31); Bilirubin Direct 0.6 mg/dL (0.0-0.5); Bilirubin Total 1.5 mg/dL (0.0-1.0); Blood Urea Nitrogen 52 mg/dL (9-16); Calcium 7.5 mg/dL (8.4-10.2); Carbon Dioxide 20 mmol/L (22-29); Chloride 109 mmol/L (96-108); Estimated Glomerular Filt Rate 37; Glucose Random 98 mg/dL (60-115); Platelet Count 26 X10*3/uL (160-400); Potassium 4.7 mmol/L (3.3-5.1); Sodium 136 mmol/L (135-145); Total Protein 4.2 g/dL (6.5-8.0)
[2021-12-30 06:52] LABS: PLT ABN DIST 1
[2021-12-30 07:11] LABS: Band Neutrophils Percent 10 % (3-5); Lymphocytes Absolute Manual 0.2 X10*3/uL (1.2-4.9); Lymphocytes Percent Manual 8 % (20-40); Neutrophils Absolute Manual 2.1 X10*3/uL (2.0-8.3); Neutrophils Percent Manual 82 % (45-73)
[2021-12-30 07:12] LABS: Burr Cells 3+ (>5) /OIF; Ovalocytes 1+ (5-14) /OIF; Platelet Estimate DECREASED (NORMAL); Platelet Morphology Comment NORMAL; RBC Morphology NOTED
[2021-12-30] MEDS: Folic Acid 1 MG TABLET PO (08:48)
[2021-12-30] MEDS: Omeprazole 40 MG CAPSULE.DR PO (08:49)
[2021-12-30] MEDS: predniSONE 20 MG TABLET 60 MG PO (08:49)
[2021-12-30] MEDS: 0.9 % Sodium Chloride Flush 3 ML SYRINGE IVFLUSH (08:49)
[2021-12-30] MEDS: Cyanocobalamin (Vitamin B-12) 500 MCG TABLET PO (08:49)
--- NOTE | 2021-12-30 09:52 | MHC.CM.PN ---
PATIENT LIVES WITH HER SISTER. SHE HAS RECENTLY BEEN USING A WALKER IN THE HOME, SHE FEELS MORE OUT OF BREATH' THAN NORMAL. HCP IS ON FILE AND VERIFIED. NO HOME O2. COVID VACCINATED X 3 AND INFORMATION IS ALREADY IN EXPANSE. SISTER WILL PROVIDE TRANSPORT HOME. IMM 12/30 IN CHART
[2021-12-30] MEDS: Acetaminophen 325 MG TABLET 650 MG PO ×2 (12:29→19:43)
--- NOTE | 2021-12-30 12:41 | HO.PM.IMPN ---
Subjective Subjective Date of Service: 12/30/21 Interval History: Patient awake alert denies chest pain, no shortness of breath, denies abdominal pain, no acute events since admission, no bleeding noted, no fever chills. Review of Systems Review of Systems: Yes all other systems are reviewed and are negative Physical Exam Vital Signs: Vital Signs: Last Vital Signs Temp 98.1 F 12/30/21 09:33 Pulse 105 H 12/30/21 09:33 Resp 18 12/30/21 09:33 BP 134/73 12/30/21 09:33 Pulse Ox 99 12/30/21 09:33 BMI result Body Mass Index 31.4 Const: Other: General resting comfortably in no acute distress. Neck supple no JVD. CVS regular rate rhythm, Respiratory lungs clear to auscultation, no respiratory distress, no wheeze, no rhonchi, right lateral chest old scar for chest tube insertion, no crepitus Gastrointestinal abdomen soft, mild distension, nontender, bowel sounds audible,no guarding , no rigidity. Extremities b/l edema. Neuro nonfocal , speech clear. Skin no rash Psych appropriate affect Objective Data Active Medications Acetaminophen (Acetaminophen 325 Mg Tablet) 650 mg PO Q6H PRN PRN Reason: Pain, Mild (Pain Scale 1-3) Last Admin: 12/30/21 12:29 Dose: 650 mg Documented by: CARLO Cyanocobalamin (Cyanocobalamin (Vitamin B-12) 500 Mcg Tablet) 500 mcg PO DAILY COUNTS INCLUDE 234 BEDS AT THE [facility] Last Admin: 12/30/21 08:49 Dose: 500 mcg Documented by: JULIANA Folic Acid (Folic Acid 1 Mg Tablet) 1 mg PO DAILY COUNTS INCLUDE 234 BEDS AT THE [facility] Last Admin: 12/30/21 08:48 Dose: 1 mg Documented by: JULIANA Sodium Chloride (Ns) 1,000 mls @ 100 mls/hr IVCONT .Q10H COUNTS INCLUDE 234 BEDS AT THE [facility] Last Admin: 12/30/21 06:07 Dose: 100 mls/hr Documented by: LEANNA Ceftriaxone Sodium 1 gm/ (Sodium Chloride) 50 mls @ 100 mls/hr IV Q24H COUNTS INCLUDE 234 BEDS AT THE [facility] Last Infusion: 12/30/21 03:23 Dose: 0 mls/hr Documented by: LEANNA Omeprazole (Omeprazole 40 Mg Padmini.) 40 mg PO DAILY@0630 COUNTS INCLUDE 234 BEDS AT THE [facility] Last Admin: 12/30/21 08:49 Dose: 40 mg Documented by: JULIANA Ondansetron HCl (Ondansetron Hcl 4 Mg/2 Ml Vial) 4 mg IVPUSH Q8H PRN PRN Reason: Nausea and Vomiting Pharmacy Consult (Consult Rx Perform Med Rec) 1 each MISCELLANE ONCE PRN PRN Reason: Consult order Prednisone (Prednisone 20 Mg Tablet) 60 mg PO DAILY COUNTS INCLUDE 234 BEDS AT THE [facility] Last Admin: 12/30/21 08:49 Dose: 60 mg Documented by: JULIANA Sodium Chloride (0.9 % Sodium Chloride Flush 3 Ml Syringe) 3 ml IVFLUSH QSHIFT COUNTS INCLUDE 234 BEDS AT THE [facility] Last Admin: 12/30/21 08:49 Dose: 3 ml Documented by: JULIANA Zolpidem Tartrate (Zolpidem Tartrate 5 Mg Tablet) 5 mg PO BEDTIME PRN PRN Reason: insomnia Labs CBC & Chem 7: 12/30/21 05:59 12/30/21 05:59 Labs: Laboratory Results - last 24 hr 12/29/21 12/29/21 12/29/21 15:57 15:57 15:57 MCV 93.0 MCH 31.5 MCHC 33.9 RDW 17.6 H Plt Count 31 L D MPV Not Reportable Immature Gran % (Auto) Cancelled Neut % (Auto) Cancelled Lymph % (Auto) Cancelled [place] % (Auto) Cancelled Eos % (Auto) Cancelled Baso % (Auto) Cancelled Lymph # (Auto) Cancelled [place] # (Auto) Cancelled Eos # (Auto) Cancelled Baso # (Auto) Cancelled Abs Immat Gran (auto) Cancelled Absolute Neuts (auto) Cancelled Absolute Nucleated RBC 0.000 Nucleated RBC % (auto) 0.0 Neutrophils % (Manual) 79 H Band Neutrophils % 14 H Lymphocytes % (Manual) 4 L Monocytes % (Manual) 2 Metamyelocytes % 1 Abs Neuts (Manual) 2.5 Lymphocytes # (Manual) 0.1 L Monocytes # (Manual) 0.1 Dohle Bodies PRESENT Platelet Estimate DECREASED Plt Morphology Comment NORM RBC Morphology NOTED Ovalocytes [place] Cells 1+ (0-2) Schistocytes 1+ (0-2) Smear Path Review PT INR APTT Anion Gap 15 Estim Creat Clear Calc 27.8 Estimated GFR 29 Random Glucose 131 H Lactic Acid Calcium 8.5 Magnesium 2.3 Total Bilirubin 2.7 H Direct Bilirubin 1.6 H AST 71 H ALT 92 H Alkaline Phosphatase 216 H D B-Natriuretic Peptide Total Protein 4.7 L Albumin 2.8 L Lipase 21 Urine Color Urine Appearance Urine pH Ur Specific [place] Urine Protein Urine Glucose (UA) Urine Ketones Urine Blood Urine Nitrite Ur Leukocyte Esterase Urine RBC Urine WBC Ur Squamous Epith Cells Amorphous Sediment Urine Bacteria COVID-19 ([facility]IN[facility]) Negative COVID-19 Clin Com See Note 12/29/21 12/29/21 12/29/21 15:57 15:57 15:57 MCV MCH MCHC RDW Plt Count MPV Immature Gran % (Auto) Neut % (Auto) Lymph % (Auto) [place] % (Auto) Eos % (Auto) Baso % (Auto) Lymph # (Auto) [place] # (Auto) Eos # (Auto) Baso # (Auto) Abs Immat Gran (auto) Absolute Neuts (auto) Absolute Nucleated RBC Nucleated RBC % (auto) Neutrophils % (Manual) Band Neutrophils % Lymphocytes % (Manual) Monocytes % (Manual) Metamyelocytes % Abs Neuts (Manual) Lymphocytes # (Manual) Monocytes # (Manual) Dohle Bodies Platelet Estimate Plt Morphology Comment RBC Morphology Ovalocytes [place] Cells Schistocytes Smear Path Review PT 11.9 INR 1.0 APTT 23.0 L Anion Gap Estim Creat Clear Calc Estimated GFR Random Glucose Lactic Acid 1.6 Calcium Magnesium Total Bilirubin Direct Bilirubin AST ALT Alkaline Phosphatase B-Natriuretic Peptide 229 H Total Protein Albumin Lipase Urine Color Urine Appearance Urine pH Ur Specific [place] Urine Protein Urine Glucose (UA) Urine Ketones Urine Blood Urine Nitrite Ur Leukocyte Esterase Urine RBC Urine WBC Ur Squamous Epith Cells Amorphous Sediment Urine Bacteria COVID-19 ([facility]INCY) COVID-19 Clin Com 12/29/21 12/30/21 12/30/21 19:35 05:59 05:59 MCV 95.9 MCH 30.9 MCHC 32.3 RDW 17.7 H Plt Count 26 L MPV Not Reportable Immature Gran % (Auto) Cancelled Neut % (Auto) Cancelled Lymph % (Auto) Cancelled [place] % (Auto) Cancelled Eos % (Auto) Cancelled Baso % (Auto) Cancelled Lymph # (Auto) Cancelled [place] # (Auto) Cancelled Eos # (Auto) Cancelled Baso # (Auto) Cancelled Abs Immat Gran (auto) Cancelled Absolute Neuts (auto) Cancelled Absolute Nucleated RBC 0.000 Nucleated RBC % (auto) 0.0 Neutrophils % (Manual) 82 H Band Neutrophils % 10 H Lymphocytes % (Manual) 8 L Monocytes % (Manual) Metamyelocytes % Abs Neuts (Manual) 2.1 Lymphocytes # (Manual) 0.2 L Monocytes # (Manual) Dohle Bodies Platelet Estimate DECREASED Plt Morphology Comment NORMAL RBC Morphology NOTED Ovalocytes 1+ (5-14) [place] Cells 3+ (>5) Schistocytes Smear Path Review Cancelled PT INR APTT Anion Gap Estim Creat Clear Calc Estimated GFR Random Glucose Lactic Acid Calcium Magnesium Total Bilirubin 1.5 H Direct Bilirubin 0.6 H AST 67 H ALT 76 H Alkaline Phosphatase 183 H B-Natriuretic Peptide Total Protein 4.2 L Albumin 2.2 L D Lipase Urine Color DK YELLOW Urine Appearance HAZY Urine pH 6.0 Ur Specific [place] 1.025 Urine Protein NEG Urine Glucose (UA) NEG Urine Ketones NEG Urine Blood 3+ H Urine Nitrite NEG Ur Leukocyte Esterase 2+ H Urine RBC 30-49 H Urine WBC 10-14 H Ur Squamous Epith Cells 2+ Amorphous Sediment TRACE Urine Bacteria 1+ COVID-19 ([facility]) COVID-19 Clin Com 12/30/21 05:59 MCV MCH MCHC RDW Plt Count MPV Immature Gran % (Auto) Neut % (Auto) Lymph % (Auto) [place] % (Auto) Eos % (Auto) Baso % (Auto) Lymph # (Auto) [place] # (Auto) Eos # (Auto) Baso # (Auto) Abs Immat Gran (auto) Absolute Neuts (auto) Absolute Nucleated RBC Nucleated RBC % (auto) Neutrophils % (Manual) Band Neutrophils % Lymphocytes % (Manual) Monocytes % (Manual) Metamyelocytes % Abs Neuts (Manual) Lymphocytes # (Manual) Monocytes # (Manual) Dohle Bodies Platelet Estimate Plt Morphology Comment RBC Morphology Ovalocytes [place] Cells Schistocytes Smear Path Review PT INR APTT Anion Gap 12 Estim Creat Clear Calc 34.0 Estimated GFR 37 Random Glucose 98 Lactic Acid Calcium 7.5 L D Magnesium Total Bilirubin Direct Bilirubin AST ALT Alkaline Phosphatase B-Natriuretic Peptide Total Protein Albumin Lipase Urine Color Urine Appearance Urine pH Ur Specific [place] Urine Protein Urine Glucose (UA) Urine Ketones Urine Blood Urine Nitrite Ur Leukocyte Esterase Urine RBC Urine WBC Ur Squamous Epith Cells Amorphous Sediment Urine Bacteria COVID-19 ([facility]INCY) COVID-19 Clin Com Assessment and Plan (1) Leukopenia: Status: Acute (2) Metastatic breast cancer: Status: Chronic (3) Acute kidney injury: Status: Acute (4) Thrombocytopenia: Status: Acute (5) Essential hypertension: Status: Acute Plan 76-year-old woman with history of breast cancer and now malignancy to the liver admitted with electrolyte abnormalities and DWIGHT. Abdominal distension. No abdominal pain, no nausea no vomiting Abdominal ultrasound shows small amount of ascites, likely related to liver Mets Will obtain CT abdomen since unable to compare metastatic burden to liver, case discussed with Dr. Shafer, no further intervention at this time Positive UA ? uti UA mildly positive patient asymptomatic, afebrile but since neutropenic will cover with IV ceftriaxone follow urine and blood culture Subcutaneous emphysema to right chest wall with concern for fistula to pleural cavity or skin from loculated pneumothorax (previously had loculated pleural effusion now replaced with air status post PleurX catheter) Will obtain CT chest and pulmonary consult Tachypnea improved oxygenation stable on 2 L patient not on home oxygen, for home on will gradually wean as tolerated DWIGHT. likely from fluid losses from diarrhea, creatinine normalized will DC IV fluid Hyperkalemia.? Status post Lokelma repeat potassium within normal range Pancytopenia.? Likely secondary to chemotherapy Persistent low platelet counts and leukopenia no active bleed noted will hold off on platelet transfusion follow CBC Metastatic Breast ca with liver/ bone/pleural mets Case discussed with Dr. Shafer DVT prophylaxis with mechanical compression boots due to thrombocytopenia Need continued inpatient hospitalization for pancytopenia and further workup for possible fistula to pleural cavity from right loculated pneumothorax Quality Stroke Does the patient have a stroke diagnosis?: No VTE Prior VTE?: No VTE Risk Level:: Medical - moderate - high VTE Device Contraindication: N/A - Device Ordered VTE Drug Contraindication: Treatment Not Indicated
--- NOTE | 2021-12-30 14:11 | P.CNHO_ITS ---
Subjective - Subjective Chief complaint: Weakness, abdominal distension Patient: known to practice within the last 3 years Consult date: 12/30/21 Requesting Physician: Dr. Garber Primary Care Provider: Arlene Pressley MD Medical Summary: Diagnosis: Metastatic breast cancer September 2019 HPI - Consult Narrative Reason for consult: Metastatic breast cancer, abnormal imaging findings. Narrative: Ursula Lacy is a 76 year old female with history of metastatic breast cancer who is admitted with complaints of abdominal distension and progressive weakness. She was also found to have acute kidney injury. She was referred for admission from oncology office, subsequent workup in the emergency department revealed new loculated air in the right chest wall and subcutaneous tissue. Ultrasound abdomen revealed progressive liver metastasis and ascites. She has been started on antibiotics for possible UTI although she has no symptoms such as dysuria, fever or chills. She has been diagnosed with organizing pneumonia and is being followed by a valve setter at [facility]. She is on prednisone 60 mg daily for this. For her metastatic breast cancer she was recently started on Abemaciclib. Review of Systems - Constitutional Reports as per HPI, Reports lack of energy, Reports malaise, Reports poor appetite - Cardiovascular Reports no additional cardiovascular complaints, Denies chest pain at rest, Reports foot swelling - Respiratory Reports no additional respiratory complaints - Gastrointestinal Denies abdominal pain, Denies black, tarry stools, Reports nausea Oncology Screenings - ECOG Performance Status ECOG Performance Status: 3 PMFSH Medical History: Medical History (Last Reviewed 12/29/21 @ 14:52 by Darcy Patel MD) Breast cancer Chronic insomnia Coronary heart disease Dyslipidemia Essential hypertension Hypertension Vertigo Family History: Family History (Last Reviewed 11/18/21 @ 15:52 by Hawa Lubin) Mother Hypertension Diabetes Paternal Aunt Cancer Surgical History: Surgical History (Last Reviewed 12/29/21 @ 14:52 by Darcy Patel MD) H/O: hysterectomy Social History: Social History (Last Updated 11/18/21 @ 15:52 by Hawa Lubin) Living Situation History: Household Members: Family Tobacco History: Patient Tobacco Use Status: Never used Tobacco Substance Use History: Use of substances other than those prescribed or required for medical reasons : No Advance Directives: Advance Directives: Yes Advance Directives on File: Yes Advance Directives Date on File: 08/13/20 Occupation Assessmet: service: No Current occupational status: retired Home Medications and Allergies Current Medications: Current Medications Acetaminophen (Acetaminophen 325 Mg Tablet) 650 mg PO Q6H PRN PRN Reason: Pain, Mild (Pain Scale 1-3) Last Admin: 12/30/21 12:29 Dose: 650 mg Documented by: Cyanocobalamin (Cyanocobalamin (Vitamin B-12) 500 Mcg Tablet) 500 mcg PO DAILY [facility] Last Admin: 12/30/21 08:49 Dose: 500 mcg Documented by: Folic Acid (Folic Acid 1 Mg Tablet) 1 mg PO DAILY [facility] Last Admin: 12/30/21 08:48 Dose: 1 mg Documented by: Sodium Chloride (Ns) 1,000 mls @ 100 mls/hr IVCONT .Q10H [facility] Last Admin: 12/30/21 06:07 Dose: 100 mls/hr Documented by: Ceftriaxone Sodium 1 gm/ (Sodium Chloride) 50 mls @ 100 mls/hr IV Q24H [facility] Last Infusion: 12/30/21 03:23 Dose: Infused Documented by: Omeprazole (Omeprazole 40 Mg Capsule.Dr) 40 mg PO DAILY@0630 [facility] Last Admin: 12/30/21 08:49 Dose: 40 mg Documented by: Ondansetron HCl (Ondansetron Hcl 4 Mg/2 Ml Vial) 4 mg IVPUSH Q8H PRN PRN Reason: Nausea and Vomiting Pharmacy Consult (Consult Rx Perform Med Rec) 1 each MISCELLANE ONCE PRN PRN Reason: Consult order Prednisone (Prednisone 20 Mg Tablet) 60 mg PO DAILY [facility] Last Admin: 12/30/21 08:49 Dose: 60 mg Documented by: Sodium Chloride (0.9 % Sodium Chloride Flush 3 Ml Syringe) 3 ml IVFLUSH QSHIFT [facility] Last Admin: 12/30/21 08:49 Dose: 3 ml Documented by: Zolpidem Tartrate (Zolpidem Tartrate 5 Mg Tablet) 5 mg PO BEDTIME PRN PRN Reason: insomnia Home Medications Medication Instructions Recorded Confirmed Type cyanocobalamin (vitamin B-12) 500 500 mcg PO DAILY 08/12/20 12/29/21 History mcg tablet folic acid 1 mg tablet 1 mg PO DAILY 09/17/21 12/29/21 History prednisone 20 mg tablet 3 tab PO DAILY 12/29/21 12/29/21 History sulfamethoxazole 800 1 tab PO 3XW 12/29/21 12/29/21 History mg-trimethoprim 160 mg tablet Allergies Allergy/AdvReac Type Severity Reaction Status Date / Time codeine [Codeine] Allergy Unknown NAUSEA & Verified 11/18/21 15:53 VOMITING, Codeine Phosphate Allergy Unknown GI upset Verified 11/18/21 15:53 Physical Exam Vital signs: Vital Signs Temp 98.1 F 12/30/21 09:33 Pulse 105 H 12/30/21 09:33 Resp 18 12/30/21 09:33 BP 134/73 12/30/21 09:33 Pulse Ox 99 12/30/21 09:33 Intake & Output 12/29/21 12/30/21 12/30/21 18:59 06:59 18:59 Intake Total 2050 / 3100 1050 / 3100 Balance 2050 / 3100 1050 / 3100 Intake: Intake, IV Amount 2050 / 3100 1050 / 3100 cefEPime HCl 2 gm In 0.9 % 50 / 50 Sodium Chloride 50 ml @ 100 mls /hr IV ONCE ONE Rx#:[id number] cefTRIAXone sodium 1 gm In 0.9 50 / 50 % Sodium Chloride 50 ml @ 100 mls/hr IV Q24H [facility] Rx#: [id number] 0.9 % Sodium Chloride 1,000 ml 2000 / 3000 1000 / 3000 @ 100 mls/hr IVCONT .Q10H [facility] Rx#:[id number] Other: Number of Unmeasured Voids 2 Weight 77.8 kg Weight 77.8 kg - Constitutional Present: mild distress - Routine HEENT Exam Head: Present: normal inspection Eye: Present: EOMI, conjunctivae pale - Routine Neck Exam Present: supple. Absent: lymphadenopathy - Routine Respiratory Exam Present: decreased breath sounds, CTAB. Absent: accessory muscle use - Routine Cardiovascular Exam Cardiovascular: Present: S1, S2 - Routine Abdominal Exam Present: distended - Routine Skin Exam Absent: cyanosis - Routine Neurological Exam Present: alert, oriented X3 Hem/Onc Consult Result - Labs CBC & Chem 7: 12/30/21 05:59 12/30/21 05:59 Labs: Short CBC 12/29/21 12/30/21 Range/Units 15:57 05:59 WBC 2.7 L 2.3 L (4.8-10.8) X10*3/uL Hgb 14.5 12.9 (12.0-16.0) g/dl Hct 42.8 40.0 (37.0-47.0) % Plt Count 31 L D 26 L (160-400) X10*3/uL BMP 12/29/21 12/30/21 15:57 05:59 Sodium 135 136 Potassium 5.3 H 4.7 Chloride 102 109 H Carbon Dioxide 23 20 L BUN 57 H 52 H Creatinine 1.71 H 1.40 Calcium 8.5 7.5 L D Liver Function 12/29/21 12/30/21 Range/Units 15:57 05:59 Total Bilirubin 2.7 H 1.5 H (0.0-1.0) mg/dL Direct Bilirubin 1.6 H 0.6 H (0.0-0.5) mg/dL AST 71 H 67 H (5-31) U/L ALT 92 H 76 H (0-31) U/L Alkaline Phosphatase 216 H D 183 H (39-117) U/L Albumin 2.8 L 2.2 L D (3.5-5.0) g/dL Urine 12/29/21 Range/Units 19:35 Urine Color DK YELLOW Urine Appearance HAZY Urine pH 6.0 (5.0-8.0) Ur Specific [place] 1.025 (1.005-1.025) Urine Protein NEG (NEG-TRACE) MG/DL Urine Glucose (UA) NEG (NEG) MG/DL Assessment and Plan Patient Active problem list reviewed?: Yes (1) Metastatic breast cancer Status: Chronic Assessment and plan: 1. This is a 76-year-old woman with metastatic breast cancer, ER/RI positive, HER2 negative, dx 2019. She presented with extensive right pleural effusion and multiple liver metastasis. CA27-29 elevated at 676 U/ mL. She was initially on letrozole along with palbociclib until April 2021. She received chemotherapy with Taxotere from August 2021, she received 5 cycles. Subsequently she was diagnosed with organizing pneumonia involving left lower lobe, this was diagnosed by a valve setter in [place]. She was on antibiotics and steroids for this. She remains on prednisone 60 mg once daily. She was started on Abemaciclib 200 mg bid for metastatic breast cancer on 12/08/2021. Unfortunately, she has developed progressive disease with liver metastasis, new splenic lesion, ascites as well as worsening left pleural effusion. Her worsening cytopenias, thrombocytopenia as well as leukopenia is secondary to this treatment. 2. Right hydropneumothorax, new large left pleural effusion. It is unclear if she had any surgical procedure of the right chest in the recent weeks, patient denies it. 3. Disposition. Prognosis is now poor. Her performance status has declined considerably along with disease progression. She is no longer a candidate for chemotherapy and unfortunately she has not been responding to hormonal manipulation. Hospice care will be addressed with her. I thank you for this consultation. - Time Spent With Patient Time Spent with Patient (in minutes): 25
--- NOTE | 2021-12-30 19:35 | PC.NURSE ---
PATIENT WAS ASSISTED WITH A BED BATH ,AND WAS REPOSITION .
[2021-12-30] MEDS: Zolpidem Tartrate 5 MG TABLET PO (19:44)
--- NOTE | 2021-12-31 00:20 | PC.NURSE ---
P multiple open areas bilateral buttocks I hospital policy explained to patient E patient refuses to have pictures taken of open wounds
[2021-12-31] MEDS: cefTRIAXone sodium 1 GM in 0.9 % Sodium Chloride 50 ML IV (01:48)
[2021-12-31] MEDS: Omeprazole 40 MG CAPSULE.DR PO (05:50)
[2021-12-31] MEDS: 0.9 % Sodium Chloride 1,000 ML 100 ML IVCONT (06:19)
[2021-12-31 07:48] VITALS: BP 142/78; PULSE 99; RESP 15; TEMP 37.1; O2SAT 97
[2021-12-31] MEDS: Cyanocobalamin (Vitamin B-12) 500 MCG TABLET PO (08:46)
[2021-12-31] MEDS: predniSONE 20 MG TABLET 60 MG PO (08:46)
[2021-12-31] MEDS: Folic Acid 1 MG TABLET PO (08:46)
--- NOTE | 2021-12-31 09:01 | P.CDIC_ITS ---
CDI Concurrent Query Documentation Clarification: PHYSICIAN'S DOCUMENTATION REQUEST Date of Query: 12/31/21901 Patient Name: Ursula Lacy Admit Date: 12/29/21 Dear Doctor, A review of the medical record indicates additional documentation may be needed. Please review below and update the documentation accordingly. Is there a diagnosis that correlates with these lab findings: Risk Factors/Clinical Indicators/Treatments LAB FINDINGS: albumin 2.8 L 2.2 L Please indicate in your progress notes if you are in agreement that the above diagnosis is valid for this patient: Hypoalbuminemia or other * Yes, [ ] is a valid diagnosis for this patient * No, [ ] is a not a valid diagnosis for this patient * Other (please specify) * Unable to determine Use of terms such as suspected, likely, concern for, or probable (associated with a specific diagnosis that is being evaluated, monitored, or treated as if it exists) are acceptable and can be coded in the inpatient setting, when documented at the time of discharge. Thank you, Sushma Wei [facility], CDIS Extension: [phone] Please use your independent medical judgment in providing your response. THIS QUERY IS PART OF THE PERMANENT MEDICAL RECORD Provider Response: Other Other Diagnosis: Hypoalbuminemia
--- NOTE | 2021-12-31 10:24 | PM.HEMONCPN ---
Medical Summary - Medical Summary Date of Service: 12/31/21 Chief complaint: Abdominal distension Medical Summary: Diagnosis: Metastatic breast cancer September 2019 Interval History Interval history: Patient is feeling about the same. Today she feels the urge to move her bowels. She has not had any diarrhea since getting admitted to the hospital. She denies any pain, no fever or chills. [facility] Medical History: Medical History (Last Reviewed 12/29/21 @ 14:52 by Darcy Patel MD) Breast cancer Chronic insomnia Coronary heart disease Dyslipidemia Essential hypertension Hypertension Vertigo Family History: Family History (Last Reviewed 11/18/21 @ 15:52 by Hawa Lubin) Mother Hypertension Diabetes Paternal Aunt Cancer Surgical History: Surgical History (Last Reviewed 12/29/21 @ 14:52 by Darcy Patel MD) H/O: hysterectomy Social History: Social History (Last Updated 11/18/21 @ 15:52 by Hawa Lubin) Living Situation History: Household Members: Other Household Members Other:: sister Housing: House Do you presently have visiting nurse or other home services: No Tobacco History: Patient Tobacco Use Status: Never used Tobacco Advance Directives: Advance Directives Date on File: 08/13/20 Occupation Assessmet: service: No Current occupational status: retired Home Medications and Allergies Current Medications: Current Medications Acetaminophen (Acetaminophen 325 Mg Tablet) 650 mg PO Q6H PRN PRN Reason: Pain, Mild (Pain Scale 1-3) Last Admin: 12/30/21 19:43 Dose: 650 mg Documented by: Cyanocobalamin (Cyanocobalamin (Vitamin B-12) 500 Mcg Tablet) 500 mcg PO DAILY [facility] Last Admin: 12/31/21 08:46 Dose: 500 mcg Documented by: Folic Acid (Folic Acid 1 Mg Tablet) 1 mg PO DAILY [facility] Last Admin: 12/31/21 08:46 Dose: 1 mg Documented by: Sodium Chloride (Ns) 1,000 mls @ 100 mls/hr IVCONT .Q10H [facility] Last Admin: 12/31/21 06:19 Dose: 100 mls/hr Documented by: Ceftriaxone Sodium 1 gm/ (Sodium Chloride) 50 mls @ 100 mls/hr IV Q24H [facility] Last Infusion: 12/31/21 02:21 Dose: Infused Documented by: Omeprazole (Omeprazole 40 Mg Padmini.) 40 mg PO DAILY@0630 [facility] Last Admin: 12/31/21 05:50 Dose: 40 mg Documented by: Ondansetron HCl (Ondansetron Hcl 4 Mg/2 Ml Vial) 4 mg IVPUSH Q8H PRN PRN Reason: Nausea and Vomiting Pharmacy Consult (Consult Rx Perform Med Rec) 1 each MISCELLANE ONCE PRN PRN Reason: Consult order Prednisone (Prednisone 20 Mg Tablet) 60 mg PO DAILY [facility] Last Admin: 12/31/21 08:46 Dose: 60 mg Documented by: Sodium Chloride (0.9 % Sodium Chloride Flush 3 Ml Syringe) 3 ml IVFLUSH QSHIFT [facility] Last Admin: 12/31/21 08:46 Dose: Not Given Documented by: Zolpidem Tartrate (Zolpidem Tartrate 5 Mg Tablet) 5 mg PO BEDTIME PRN PRN Reason: insomnia Last Admin: 12/30/21 19:44 Dose: 5 mg Documented by: Home Medications Medication Instructions Recorded Confirmed Type cyanocobalamin (vitamin B-12) 500 500 mcg PO DAILY 08/12/20 12/29/21 History mcg tablet folic acid 1 mg tablet 1 mg PO DAILY 09/17/21 12/29/21 History prednisone 20 mg tablet 3 tab PO DAILY 12/29/21 12/29/21 History sulfamethoxazole 800 1 tab PO 3XW 12/29/21 12/29/21 History mg-trimethoprim 160 mg tablet Allergies Allergy/AdvReac Type Severity Reaction Status Date / Time codeine [Codeine] Allergy Unknown NAUSEA & Verified 11/18/21 15:53 VOMITING, Codeine Phosphate Allergy Unknown GI upset Verified 11/18/21 15:53 Exam Vital signs: Vital Signs Temp 98.8 F 12/31/21 07:48 Pulse 99 12/31/21 07:48 Resp 15 12/31/21 07:48 BP 142/78 H 12/31/21 07:48 Pulse Ox 97 12/31/21 07:48 Intake & Output 12/30/21 12/31/21 12/31/21 18:59 06:59 18:59 Intake Total 1000 / 2410 1410 / 2410 Output Total 600 / 600 Balance 1000 / 1810 810 / 1810 Urine Output (Average ml/kg/hr) 0.64 Intake: Intake, Oral Amount 360 / 360 Intake, IV Amount 9990 1050 / 2050 cefTRIAXone sodium 1 gm In 0.9 50 / 50 % Sodium Chloride 50 ml @ 100 mls/hr IV Q24H [facility] Rx#: [id number] 0.9 % Sodium Chloride 1,000 ml 1000 / 2000 1000 / 2000 @ 100 mls/hr IVCONT .Q10H [facility] Rx#:[id number] Output: Output, Urine Amount 600 / 600 Other: Dinner % Eaten 50% Number of Unmeasured Voids 1 Urine Urinal Urine Color Yellow Last Bowel Movement 12/29/21 Weight 77.8 kg BMI result Body Mass Index 31.4 - Constitutional Present: mild distress - Routine HEENT Exam Head: Present: normal inspection - Routine Respiratory Exam Present: decreased breath sounds, CTAB. Absent: accessory muscle use - Routine Cardiovascular Exam Cardiovascular: Present: S1, S2 - Routine Abdominal Exam Present: distended - Routine Skin Exam Absent: cyanosis - Routine Neurological Exam Present: alert, oriented X3 Data - Labs CBC & Chem 7: 12/30/21 05:59 12/30/21 05:59 Labs: 12/29/21 Add Laboratory Test Stat 12/29/21 14:30 XR chest 1V Stat 0.9 % Sodium Chloride [Ns] 1,000 ml IVCONT 999 mls/hr 12/29/21 14:31 US abdomen limited Stat 12/29/21 15:57 B Type Natriuretic Peptide Stat Basic Metabolic Panel Stat COVID-19 ID NOW (Garza) Stat Complete Blood Count Man Dif Stat Lactic Acid Stat Lipase Stat Liver Panel Stat Magnesium Stat Partial Thromboplastin Time Stat Prothrombin Time INR Stat 12/29/21 16:41 0.9 % Sodium Chloride [Ns] 1,000 ml IVCONT 999 mls/hr 12/29/21 17:30 cefEPime HCl [Maxipime] 2 gm 0.9 % Sodium Chloride [Ns] 50 ml IV ONCE 12/29/21 17:45 cefEPime HCl [Maxipime] 2 gm IV .STK-MED ONE 12/29/21 22:35 Zolpidem Tartrate [Ambien] 10 mg PO BEDTIME PRN 12/30/21 CT abdomen wo con Routine CT chest wo con Routine 12/30/21 02:13 cefTRIAXone sodium [Rocephin] 1 gm .ROUTE .STK-MED ONE 12/30/21 05:59 Basic Metabolic Panel AM Complete Blood Count Man Dif Routine Liver Panel DAILY@0600 12/31/21 01:46 cefTRIAXone sodium [Rocephin] 1 gm .ROUTE .STK-MED ONE Laboratory Last Values WBC 2.3 X10*3/uL (4.8-10.8) L 12/30/21 05:59 RBC 4.17 X10*6/uL (4.20-5.50) L 12/30/21 05:59 Hgb 12.9 g/dl (12.0-16.0) 12/30/21 05:59 Hct 40.0 % (37.0-47.0) 12/30/21 05:59 MCV 95.9 fL (80.0-98.0) 12/30/21 05:59 MCH 30.9 pg (27.0-33.0) 12/30/21 05:59 MCHC 32.3 g/dl (31.0-35.0) 12/30/21 05:59 RDW 17.7 % (11.0-16.0) H 12/30/21 05:59 Plt Count 26 X10*3/uL (160-400) L 12/30/21 05:59 MPV Not Reportable 12/30/21 05:59 Immature Gran % (Auto) Cancelled 12/30/21 05:59 Neut % (Auto) Cancelled 12/30/21 05:59 Lymph % (Auto) Cancelled 12/30/21 05:59 [place] % (Auto) Cancelled 12/30/21 05:59 Eos % (Auto) Cancelled 12/30/21 05:59 Baso % (Auto) Cancelled 12/30/21 05:59 Lymph # (Auto) Cancelled 12/30/21 05:59 [place] # (Auto) Cancelled 12/30/21 05:59 Eos # (Auto) Cancelled 12/30/21 05:59 Baso # (Auto) Cancelled 12/30/21 05:59 Abs Immat Gran (auto) Cancelled 12/30/21 05:59 Absolute Neuts (auto) Cancelled 12/30/21 05:59 Absolute Nucleated RBC 0.000 X10*3/uL (0.0-0.012) 12/30/21 05:59 Nucleated RBC % (auto) 0.0 /100WBC (0.0-0.2) 12/30/21 05:59 Neutrophils % (Manual) 82 % (45-73) H 12/30/21 05:59 Band Neutrophils % 10 % (3-5) H 12/30/21 05:59 Lymphocytes % (Manual) 8 % (20-40) L 12/30/21 05:59 Monocytes % (Manual) 2 % (2-11) 12/29/21 15:57 Metamyelocytes % 1 % 12/29/21 15:57 Abs Neuts (Manual) 2.1 X10*3/uL (2.0-8.3) 12/30/21 05:59 Lymphocytes # (Manual) 0.2 X10*3/uL (1.2-4.9) L 12/30/21 05:59 Monocytes # (Manual) 0.1 X10*3/uL (0.1-1.2) 12/29/21 15:57 Dohle Bodies PRESENT 12/29/21 15:57 Platelet Estimate DECREASED (NORMAL) 12/30/21 05:59 Plt Morphology Comment NORMAL 12/30/21 05:59 RBC Morphology NOTED 12/30/21 05:59 Ovalocytes 1+ (5-14) /OIF 12/30/21 05:59 Chappell Cells 3+ (>5) /OIF 12/30/21 05:59 Schistocytes 1+ (0-2) /OIF 12/29/21 15:57 Smear Path Review Cancelled 12/30/21 05:59 PT 11.9 SEC (9.9-13.0) 12/29/21 15:57 INR 1.0 (0.9-1.1) 12/29/21 15:57 APTT 23.0 SEC (24.1-38.0) L 12/29/21 15:57 Sodium 136 mmol/L (135-145) 12/30/21 05:59 Potassium 4.7 mmol/L (3.3-5.1) 12/30/21 05:59 Chloride 109 mmol/L (96-108) H 12/30/21 05:59 Carbon Dioxide 20 mmol/L (22-29) L 12/30/21 05:59 Anion Gap 12 (12-20) 12/30/21 05:59 BUN 52 mg/dL (9-16) H 12/30/21 05:59 Creatinine 1.40 mg/dL (0.5-1.4) 12/30/21 05:59 Estim Creat Clear Calc 34.0 12/30/21 05:59 Estimated GFR 37 12/30/21 05:59 Random Glucose 98 mg/dL (60-115) 12/30/21 05:59 Lactic Acid 1.6 mmol/L (0.5-2.0) 12/29/21 15:57 Calcium 7.5 mg/dL (8.4-10.2) L D 12/30/21 05:59 Magnesium 2.3 mg/dL (1.6-2.6) 12/29/21 15:57 Total Bilirubin 1.5 mg/dL (0.0-1.0) H 12/30/21 05:59 Direct Bilirubin 0.6 mg/dL (0.0-0.5) H 12/30/21 05:59 AST 67 U/L (5-31) H 12/30/21 05:59 ALT 76 U/L (0-31) H 12/30/21 05:59 Alkaline Phosphatase 183 U/L (39-117) H 12/30/21 05:59 B-Natriuretic Peptide 229 pg/mL (<100) H 12/29/21 15:57 Total Protein 4.2 g/dL (6.5-8.0) L 12/30/21 05:59 Albumin 2.2 g/dL (3.5-5.0) L D 12/30/21 05:59 Lipase 21 U/L (8-78) 12/29/21 15:57 Urine Color DK YELLOW 12/29/21 19:35 Urine Appearance HAZY 12/29/21 19:35 Urine pH 6.0 (5.0-8.0) 12/29/21 19:35 Ur Specific [place] 1.025 (1.005-1.025) 12/29/21 19:35 Urine Protein NEG MG/DL (NEG-TRACE) 12/29/21 19:35 Urine Glucose (UA) NEG MG/DL (NEG) 12/29/21 19:35 Urine Ketones NEG MG/DL (NEG) 12/29/21 19:35 Urine Blood 3+ (NEG) H 12/29/21 19:35 Urine Nitrite NEG (NEG) 12/29/21 19:35 Ur Leukocyte Esterase 2+ (NEG) H 12/29/21 19:35 Urine RBC 30-49 /HPF (0) H 12/29/21 19:35 Urine WBC 10-14 /HPF (0-4) H 12/29/21 19:35 Ur Squamous Epith Cells 2+ /LPF 12/29/21 19:35 Amorphous Sediment TRACE /LPF 12/29/21 19:35 Urine Bacteria 1+ /LPF 12/29/21 19:35 COVID-19 (QUINCY) Negative (Negative) 12/29/21 15:57 COVID-19 Clin Com See Note 12/29/21 15:57 - Imaging Radiologist's impression: ITS Impressions Chest X-Ray 12/29/21 15:00 IMPRESSION: Air now replaces fluid in the previously described loculated pleural effusion in the right chest (this may be an ex-vacuo thorax if a procedure has been performed). There is new air in the subcutaneous soft tissues lateral to the right chest wall at the same level which may indicate a fistula to the pleural cavity and/or to the skin. Correlate with recent procedural history. Abdomen Ultrasound 12/29/21 15:41 IMPRESSION: Metastatic disease in the liver. Difficult to compare to prior PET/CT but likely increase in metastatic burden. No biliary ductal dilatation. Small volume of simple appearing ascites. Abdomen CT 12/30/21 13:38 IMPRESSION: Innumerable new low-attenuation liver lesions and new 2 cm splenic lesion suggestive of metastatic disease. New large amount of ascites. Diffuse sclerotic metastatic disease to the bones. No fracture. Question mild wall thickening of the colon/colitis versus changes due to underdistention. Fleischner guidelines were followed. Chest CT 12/30/21 13:38 IMPRESSION: Loculated right hydropneumothorax. There are adjacent air collections in the right lateral chest wall. Differential would include post surgical or procedural changes related to thoracentesis and trapped lung, bronchopleural fistula and infection/empyema. New large left pleural effusion. Atelectasis or consolidation in the right middle and right lower lobes, right upper lobe and anterior left lower lobe. Diffuse sclerotic bone disease. Fleischner guidelines were followed. Assessment and Plan Patient Active problem list reviewed?: Yes (1) Metastatic breast cancer Status: Chronic Assessment and plan: 1. This is a 76-year-old woman with metastatic breast cancer, ER/ID positive, HER2 negative, dx 2019. She presented with extensive right pleural effusion and multiple liver metastasis. CA27-29 elevated at 676 U/ mL. She was initially on letrozole along with palbociclib until April 2021. She received chemotherapy with Taxotere from August 2021, she received 5 cycles. Subsequently she was diagnosed with organizing pneumonia involving left lower lobe, this was diagnosed by a business process specialist in [place]. She was on antibiotics and steroids for this. She remains on prednisone 60 mg once daily. She was started on Abemaciclib 200 mg bid for metastatic breast cancer on 12/08/2021. Unfortunately, she has developed progressive disease with liver metastasis, new splenic lesion, ascites as well as worsening left pleural effusion. Her worsening cytopenias, thrombocytopenia as well as leukopenia is secondary to this treatment. 2. Right hydropneumothorax, new large left pleural effusion. No recent surgical procedures on the right chest. Previously she had a PleurX catheter for right pleural effusion that was discontinued over a year ago. 3. Disposition. Prognosis is now poor. Her performance status has declined considerably along with disease progression. Today I discussed palliative/ hospice care with patient in the presence of her sister Jen and our nurse navigator Carlie Moore. Patient is not interested in hospice care, she wants to pursue active treatment as long as she can. For now, I discussed evaluation with business process specialist to see if she needs to continue on Bactrim and prednisone. Bactrim could also be contributing to her cytopenias. Her chemotherapy pill was discontinued a week ago. Recommendation about hydropneumothorax and if any intervention needs to be performed. I also recommend therapeutic paracentesis and thoracentesis. Thank you, I will follow along with you. - Time Spent With Patient Time Spent with Patient (in minutes): 15
[2021-12-31 11:09] LABS: MANUAL DIFF FLAG NO
[2021-12-31 11:14] LABS: Hematocrit 41.2 % (37.0-47.0); Hemoglobin 13.4 g/dl (12.0-16.0); Imm Gran Abs Auto 0.01 X10*3/uL (0.00-0.03); Imm Gran Pct Auto 0.4 % (0.0-0.4); Lymphocytes Absolute Auto 0.3 X10*3/uL (1.2-4.9); Lymphocytes Percent Auto 12.2 % (20-40); Mean Corpuscular HGB Conc 32.5 g/dl (31.0-35.0); Mean Corpuscular Hemoglobin 30.9 pg (27.0-33.0); Mean Corpuscular Volume 95.2 fL (80.0-98.0); Monocytes Absolute Auto 0.1 X10*3/uL (0.1-1.2); Monocytes Percent Auto 2.2 % (2-11); Neutrophils Absolute Auto 2.3 x10*3/uL (2.0-8.3); Neutrophils Percent Auto 85.2 % (45-73); Red Blood Count 4.33 X10*6/uL (4.20-5.50); Red Cell Distribution Width 17.2 % (11.0-16.0); White Blood Count 2.7 X10*3/uL (4.8-10.8)
[2021-12-31 11:15] LABS: Platelet Count 24 X10*3/uL (160-400)
[2021-12-31 11:27] LABS: Alanine Aminotransferase 92 U/L (0-31); Albumin Level 2.3 g/dL (3.5-5.0); Alkaline Phosphatase 228 U/L (39-117); Anion Gap 12 (12-20); Aspartate Amino Transferase 61 U/L (5-31); Bilirubin Total 1.8 mg/dL (0.0-1.0); Blood Urea Nitrogen 51 mg/dL (9-16); Calcium 7.3 mg/dL (8.4-10.2); Carbon Dioxide 21 mmol/L (22-29); Chloride 110 mmol/L (96-108); Creatinine Clr Calc Pharmacy 35.8; Estimated Glomerular Filt Rate 39; Glucose Random 128 mg/dL (60-115); Potassium 5.1 mmol/L (3.3-5.1); Sodium 138 mmol/L (135-145)
[2021-12-31] MEDS: 0.9 % Sodium Chloride Flush 3 ML SYRINGE IVFLUSH ×2 (14:24→21:01)
[2021-12-31 14:38] VITALS: BMI 31.4
--- NOTE | 2021-12-31 14:47 | MHC.CLN ---
NUTRITION CONSULT FOR SKIN. OPEN AREAS TO BUTTOCKS. INCREASED NUTRITION NEEDS BASED ON WOUNDS AND METASTATIC CANCER. ADDING ENSURE TID PER CONVERSATION WITH PATIENT. PROVIDES 1050 KCAL, 60 G PROTEIN. PATIENT PLEASED WITH REGULAR, NOT THERAPEUTIC, DIET.
[2021-12-31 15:26] VITALS: BP 145/76; PULSE 104; RESP 18; TEMP 37.2; O2SAT 95
[2021-12-31 15:32] VITALS: O2SAT 95
--- NOTE | 2021-12-31 15:51 | HO.PM.IMPN ---
Subjective Subjective Date of Service: 12/31/21 Interval History: Offers no acute complaints of shortness of breath has cough productive of light yellow tinged sputum no chest pain no fevers no chills is very upset about low-salt diet and not receiving all medications at 1 time, no other acute events overnight. Review of Systems Review of Systems: Yes all other systems are reviewed and are negative Physical Exam Vital Signs: Vital Signs: Last Vital Signs Temp 98.1 F 12/31/21 15:32 Pulse 78 12/31/21 15:32 Resp 18 12/31/21 15:32 BP 112/60 12/31/21 15:32 Pulse Ox 94 12/31/21 15:32 BMI result Body Mass Index 31.4 Const: Other: General? resting c omfortably in no a cute distress.? Ne ck? supple no JVD. CVS? regular rate rhythm, Respirato ry lungs clear to auscultation, dimi nished breath soun ds, no respiratory distress, no whee ze, no rhonchi, ri ght lateral chest old scar for chest tube insertion, n o crepitus Gastroi ntestinal abdomen soft, distented, n ontender, bowel so unds audible,no gu arding , no rigidi ty. Extremities mi ld b/l edema. Neur o nonfocal , speec h clear. Skin no r lisa Psych appropri ate affect Objective Data Active Medications Acetaminophen (Acetaminophen 325 Mg Tablet) 650 mg PO Q6H PRN PRN Reason: Pain, Mild (Pain Scale 1-3) Last Admin: 12/30/21 19:43 Dose: 650 mg Documented by: DARIO Cyanocobalamin (Cyanocobalamin (Vitamin B-12) 500 Mcg Tablet) 500 mcg PO DAILY [facility] Last Admin: 12/31/21 08:46 Dose: 500 mcg Documented by: SHANNON Folic Acid (Folic Acid 1 Mg Tablet) 1 mg PO DAILY [facility] Last Admin: 12/31/21 08:46 Dose: 1 mg Documented by: SHANNON Ceftriaxone Sodium 1 gm/ (Sodium Chloride) 50 mls @ 100 mls/hr IV Q24H [facility] Last Infusion: 12/31/21 02:21 Dose: 0 mls/hr Documented by: LIZETH Omeprazole (Omeprazole 40 Mg Padmini.) 40 mg PO DAILY@0630 [facility] Last Admin: 12/31/21 05:50 Dose: 40 mg Documented by: LIZETH Ondansetron HCl (Ondansetron Hcl 4 Mg/2 Ml Vial) 4 mg IVPUSH Q8H PRN PRN Reason: Nausea and Vomiting Pharmacy Consult (Consult Rx Perform Med Rec) 1 each MISCELLANE ONCE PRN PRN Reason: Consult order Prednisone (Prednisone 20 Mg Tablet) 60 mg PO DAILY [facility] Last Admin: 12/31/21 08:46 Dose: 60 mg Documented by: SHANNON Sodium Chloride (0.9 % Sodium Chloride Flush 3 Ml Syringe) 3 ml IVFLUSH QSHIFT [facility] Last Admin: 12/31/21 14:24 Dose: 3 ml Documented by: SHANNON Zolpidem Tartrate (Zolpidem Tartrate 5 Mg Tablet) 5 mg PO BEDTIME PRN PRN Reason: insomnia Last Admin: 12/30/21 19:44 Dose: 5 mg Documented by: RACHANA-GRACE Labs CBC & Chem 7: 12/31/21 10:57 12/31/21 10:57 Labs: Laboratory Results - last 24 hr 12/31/21 12/31/21 10:57 10:57 MCV 95.2 MCH 30.9 MCHC 32.5 RDW 17.2 H Plt Count 24 L MPV Not Reportable Immature Gran % (Auto) 0.4 Neut % (Auto) 85.2 H Lymph % (Auto) 12.2 L [place] % (Auto) 2.2 Eos % (Auto) 0.0 Baso % (Auto) 0.0 Lymph # (Auto) 0.3 L [place] # (Auto) 0.1 Eos # (Auto) 0.0 Baso # (Auto) 0.0 Abs Immat Gran (auto) 0.01 Absolute Neuts (auto) 2.3 Absolute Nucleated RBC 0.000 Nucleated RBC % (auto) 0.0 Anion Gap 12 Estim Creat Clear Calc 35.8 Estimated GFR 39 Random Glucose 128 H Calcium 7.3 L Total Bilirubin 1.8 H AST 61 H ALT 92 H Alkaline Phosphatase 228 H D Total Protein 4.0 L Albumin 2.3 L Microbiology Microbiology Results: Microbiology 12/29/21 19:55 Urine Culture - Final Urine clean catch - Urine nation top 12/29/21 16:19 Blood Culture - Preliminary Blood - Venous Prelim: GPC Gram Stain only 12/29/21 15:57 Blood Culture - Preliminary Blood - Venous No growth after 24 hours. Assessment and Plan (1) Leukopenia: Status: Acute (2) Metastatic breast cancer: Status: Chronic (3) Acute kidney injury: Status: Acute (4) Thrombocytopenia: Status: Acute (5) Essential hypertension: Status: Acute Plan 76-year-old woman with history of breast cancer and now malignancy to the liver admitted with electrolyte abnormalities and DWIGHT. Abdominal distension. No abdominal pain, no nausea no vomiting Abdominal ultrasound shows small amount of ascites, likely related to liver Mets CT abdomen showed new liver lesions, splenic lesions and new large ascites, and diffuse sclerotic metastatic disease to the bone Since patient asymptomatic with no abdominal pain, case discussed with Dr. Shafer and decided close follow-up as outpatient Positive UA ? uti UA mildly positive patient asymptomatic, afebrile but since neutropenic will cover with IV ceftriaxone, urine culture showed mixed bacterial shanice blood culture 1/2 positive for Gram-positive cocci on stain likely contamination will follow final culture report and DC antibiotic Subcutaneous emphysema to right chest wall with concern for fistula to pleural cavity or skin from loculated pneumothorax (previously had rt.loculated pleural effusion now replaced with air status post PleurX catheter) CT chest showed large left pleural effusion, and right hydropneumothorax Patient evaluated by Dr. Renteria case discussed with him he recommend conservative management since patient is asymptomatic will hold off on thoracocentesis he recommend incentive spirometry and outpatient follow-up with her primary braddisher Dr. Kuo at [facility] patient has an appointment on 01/06/2022 Tachypnea improved oxygenation stable on 2 L patient not on home oxygen, will gradually wean as tolerated assess for home O2 prior to discharge DWIGHT. likely from fluid losses from diarrhea, creatinine normalized will DC IV fluid Hyperkalemia.? Status post Lokelma repeat potassium within normal range Pancytopenia.? Likely secondary to chemotherapy Persistent low platelet counts and leukopenia no active bleed noted will hold off on platelet transfusion follow CBC Metastatic Breast ca with liver/ bone/pleural mets Discussed in detail about code status patient currently wishes to be a full code and is not ready for hospice she wants to live and see her grandson graduating currently he is 12, continue full code Patient is on prednisone 60 mg by mouth daily, will wean to 50 mg and further tapering as per Dr. Shafer Recommend to DC Bactrim upon dc likely contributing to renal failure and leukopenia DVT prophylaxis with mechanical compression boots due to thrombocytopenia Need continued inpatient hospitalization for pancytopenia and persistent hypoxia Quality Stroke Does the patient have a stroke diagnosis?: No VTE Prior VTE?: No VTE Risk Level:: Medical - moderate - high VTE Device Contraindication: N/A - Device Ordered VTE Drug Contraindication: Treatment Not Indicated
--- NOTE | 2021-12-31 16:48 | P.CONPL_ITS ---
History of Present Illness History of Present Illness Consult date: 12/31/21 Reason for consult: dyspnea, cough and abnormal CXR/CT Chief complaint: DWIGHT Narrative: I WAS CALLED TO TO SEE THIS, 76 YEARS OLD FEMALE, BECAUSE OF GROSSLY ABNORMAL CHEST CT, . SHE WAS ADMITTED FROM THE ONCOLOGY CLINIC BECAUSE OF VERY LOW PLATELET COUNT, AND COMPLAINT OF INCREASED COUGH AND SHORTNESS OF BREATH. SHE HAS HAD NO FEVER OR CHILLS. SHE HAS HAD INCREASED ABDOMINAL GIRTH AND ALSO SWELLING OF THE DEPENDENT AREAS OF THE BODY. PAST MEDICAL HISTORY, WHICH I HAVE REVIEWED MAINLY FROM THE MEDICAL RECORDS, IS QUITE COMPLEX. SHE HAD DIAGNOSIS OF THE METASTATIC BREAST CARCINOMA BACK IN SEPTEMBER 2019. AT THE SAME TIME SHE HAD METASTATIC DISEASE OF THE LIVER AND ALSO HAD LARGE PLE URAL EFFUSIONS. PATIENT HAS BEEN TREATED WITH CHEMOTHERAPY, AND FOR PLEURAL EFFUSION WHICH WAS RECURRENT SHE HAD A PLEURX CATH PLACED IN OCTOBER 2019. SHE ALSO HAD TALC PLEURODESIS , AND SUBSEQUENTLY THE PLEURX CATH WAS REMOVED AT THE END OF 2019. PATIENT IS BEING FOLLOWED IN ONCOLOGY CLINIC, AND ALSO HAS BEEN FOLLOWING UP WITH THE PILE DRIVER ENGINEER DR. KUO OF [facility] FOR THE FEEBLE-MINDED. RECENTLY SHE HAS BEEN STARTED ON ABEMACITIB FOR THE METASTATIC BREAST CONSULT, PATIENT IS MAIN COMPLAINT IS GENERALIZED WEAKNESS, GENERALIZED IS SWELLING, OF THE BODY ESPECIALLY INCREASED ABDOMINAL GIRTH SOME COUGH AND SHORTNESS OF BREATH, BUT SHE DOES NOT SEEM TO BE IN ANY DISTRESS, SHE DOES FEEL BETTER WITH THE USE OF OXYGEN. Review of Systems Review of Systems: NOTED ABOVE IN HPI [facility] Past Medical History Medical History (Updated 12/31/21 @ 17:03 by Roel Renteria MD) Ascites Breast cancer Chronic insomnia Coronary heart disease Dyslipidemia Essential hypertension Hypertension Hypoxemia Pleural effusion Vertigo Family History Family History Mother Hypertension Diabetes Paternal Aunt Cancer Surgical History Surgical History H/O: hysterectomy Social History Social History Household Members: Other Household Members Other:: sister Housing: House Do you presently have visiting nurse or other home services: No Alcohol intake: never Patient Tobacco Use Status: Never used Tobacco Advance Directives Date on File: 08/13/20 service: No Current occupational status: retired Meds Allergies Allergy/AdvReac Type Severity Reaction Status Date / Time codeine [Codeine] Allergy Unknown Nausea and Verified 12/31/21 16:57 Vomiting, GI upset Active Medications: Current Medications Acetaminophen (Acetaminophen 325 Mg Tablet) 650 mg PO Q6H PRN PRN Reason: Pain, Mild (Pain Scale 1-3) Last Admin: 12/30/21 19:43 Dose: 650 mg Documented by: Cyanocobalamin (Cyanocobalamin (Vitamin B-12) 500 Mcg Tablet) 500 mcg PO DAILY [facility] Last Admin: 12/31/21 08:46 Dose: 500 mcg Documented by: Folic Acid (Folic Acid 1 Mg Tablet) 1 mg PO DAILY [facility] Last Admin: 12/31/21 08:46 Dose: 1 mg Documented by: Ceftriaxone Sodium 1 gm/ (Sodium Chloride) 50 mls @ 100 mls/hr IV Q24H [facility] Last Infusion: 12/31/21 02:21 Dose: Infused Documented by: Omeprazole (Omeprazole 40 Mg Capsule.Dr) 40 mg PO DAILY@0630 [facility] Last Admin: 12/31/21 05:50 Dose: 40 mg Documented by: Ondansetron HCl (Ondansetron Hcl 4 Mg/2 Ml Vial) 4 mg IVPUSH Q8H PRN PRN Reason: Nausea and Vomiting Pharmacy Consult (Consult Rx Perform Med Rec) 1 each MISCELLANE ONCE PRN PRN Reason: Consult order Prednisone (Prednisone 10 Mg Tablet) 50 mg PO DAILY [facility] Sodium Chloride (0.9 % Sodium Chloride Flush 3 Ml Syringe) 3 ml IVFLUSH QSHIFT [facility] Last Admin: 12/31/21 14:24 Dose: 3 ml Documented by: Zolpidem Tartrate (Zolpidem Tartrate 5 Mg Tablet) 5 mg PO BEDTIME PRN PRN Reason: insomnia Last Admin: 12/30/21 19:44 Dose: 5 mg Documented by: Home Medications Medication Instructions Recorded Confirmed Last Taken Type cyanocobalamin (vitamin B-12) 500 500 mcg PO DAILY 08/12/20 12/29/21 Unknown History mcg tablet folic acid 1 mg tablet 1 mg PO DAILY 09/17/21 12/29/21 Unknown History prednisone 20 mg tablet 3 tab PO DAILY 12/29/21 12/29/21 Unknown History sulfamethoxazole 800 1 tab PO 3XW 12/29/21 12/29/21 Unknown History mg-trimethoprim 160 mg tablet Physical Exam Vital Signs: Vital Signs: Last Vital Signs Temp 98.9 F 12/31/21 15:26 Pulse 104 H 12/31/21 15:26 Resp 18 12/31/21 15:26 BP 145/76 H 12/31/21 15:26 Pulse Ox 95 12/31/21 15:32 BMI result Body Mass Index 31.4 Const: Other: PATIENT IS LYING DOWN IN THE BED WITH OXYGEN 2 L/MINUTE, AND APPEARS QUITE COMFORTABLE General: comfortable, no acute distress, alert and awake HENMT: Head: Yes normal to inspection General nose exam: No nasal polyps present and No nasal discharge present Face and sinus: Yes sinuses nontender Mouth: oropharynx normal Throat: Yes posterior oropharynx normal Eyes: General: appearance normal, both eyes and all related structures Neck: Neck: Yes normal visual inspection, Yes no lymphadenopathy, Yes trachea midline and Yes no JVD Thyroid: Thyroid normal Chest: Other: There is a edema of the posterior chest wall, There is some tenderness over the right lower chest. Resp: Other: Percussion note is dull over the lower 1/3 of the chest. Breath sounds are quite diminished over the basilar areas. No crepitations or wheezes are heard. Cardio: Palpation: normal PMI Rate: regular rate Rhythm: regular rhythm Heart sounds: no gallops and no murmurs GI: Other: Patient has marked distension of the abdomen, and there is evidence of significant amount of ascites. Back/Spine/Pelvis: Other: Not exam Skin: General skin exam: no rashes or lesions noted Neuro: Other: Not exam Extrem: Other: Patient has pitting edema of the legs and also of the dependent areas especially the back Psych: Speech and movement: Normal speech and movement present Results Laboratory Findings CBC and BMP: 12/31/21 10:57 12/31/21 10:57 ABG, PT/INR, D-dimer: PT/INR, D-dimer PT 11.9 SEC (9.9-13.0) 12/29/21 15:57 INR 1.0 (0.9-1.1) 12/29/21 15:57 Abnormal lab findings: Abnormal Labs 12/29/21 12/29/21 12/29/21 15:57 15:57 15:57 WBC 2.7 L RBC RDW 17.6 H Plt Count 31 L D Neut % (Auto) Lymph % (Auto) Lymph # (Auto) Neutrophils % (Manual) 79 H Band Neutrophils % 14 H Lymphocytes % (Manual) 4 L Lymphocytes # (Manual) 0.1 L APTT 23.0 L Potassium 5.3 H Chloride Carbon Dioxide BUN 57 H Creatinine 1.71 H Random Glucose 131 H Calcium Total Bilirubin 2.7 H Direct Bilirubin 1.6 H AST 71 H ALT 92 H Alkaline Phosphatase 216 H D B-Natriuretic Peptide Total Protein 4.7 L Albumin 2.8 L Urine Blood Ur Leukocyte Esterase Urine RBC Urine WBC 12/29/21 12/29/21 12/30/21 15:57 19:35 05:59 WBC RBC RDW Plt Count Neut % (Auto) Lymph % (Auto) Lymph # (Auto) Neutrophils % (Manual) Band Neutrophils % Lymphocytes % (Manual) Lymphocytes # (Manual) APTT Potassium Chloride Carbon Dioxide BUN Creatinine Random Glucose Calcium Total Bilirubin 1.5 H Direct Bilirubin 0.6 H AST 67 H ALT 76 H Alkaline Phosphatase 183 H B-Natriuretic Peptide 229 H Total Protein 4.2 L Albumin 2.2 L D Urine Blood 3+ H Ur Leukocyte Esterase 2+ H Urine RBC 30-49 H Urine WBC 10-14 H 12/30/21 12/30/21 12/31/21 05:59 05:59 10:57 WBC 2.3 L 2.7 L RBC 4.17 L RDW 17.7 H 17.2 H Plt Count 26 L 24 L Neut % (Auto) 85.2 H Lymph % (Auto) 12.2 L Lymph # (Auto) 0.3 L Neutrophils % (Manual) 82 H Band Neutrophils % 10 H Lymphocytes % (Manual) 8 L Lymphocytes # (Manual) 0.2 L APTT Potassium Chloride 109 H Carbon Dioxide 20 L BUN 52 H Creatinine Random Glucose Calcium 7.5 L D Total Bilirubin Direct Bilirubin AST ALT Alkaline Phosphatase B-Natriuretic Peptide Total Protein Albumin Urine Blood Ur Leukocyte Esterase Urine RBC Urine WBC 12/31/21 10:57 WBC RBC RDW Plt Count Neut % (Auto) Lymph % (Auto) Lymph # (Auto) Neutrophils % (Manual) Band Neutrophils % Lymphocytes % (Manual) Lymphocytes # (Manual) APTT Potassium Chloride 110 H Carbon Dioxide 21 L BUN 51 H Creatinine Random Glucose 128 H Calcium 7.3 L Total Bilirubin 1.8 H Direct Bilirubin AST 61 H ALT 92 H Alkaline Phosphatase 228 H D B-Natriuretic Peptide Total Protein 4.0 L Albumin 2.3 L Urine Blood Ur Leukocyte Esterase Urine RBC Urine WBC Microbiology: Microbiology 12/29/21 19:55 Urine clean catch - Urine nation top Urine Culture - Final 12/29/21 16:19 Blood - Venous Blood Culture - Preliminary Prelim: GPC Gram Stain only 12/29/21 15:57 Blood - Venous Blood Culture - Preliminary No growth after 24 hours. Diagnostic Findings Chest x-ray: report reviewed and image reviewed CT scan - chest: report reviewed and image reviewed Assessment and Plan (1) Metastatic breast cancer: Status: Chronic (2) Thrombocytopenia: Status: Acute (3) Pleural effusion: Status: Acute (4) Ascites: Status: Acute (5) Hypoxemia: Status: Acute Plan This patient with metastatic breast carcinoma, Has huge ascites, as well as bilateral pleural effusions. In addition I think she has bibasilar atelectasis. There is lot of distortion of anatomy off the right lower chest due to previous PleurX catheter, and pleurodesis. At present has loculated pleural effusion in the right lower chest, may also has pleural effusion and atelectasis of the left lower lobe. Her main problem is ascites, and she may be getting pleural effusions as a result of this malignant ascites. Patient does have mild respiratory insufficiency with hypoxemia, which is corrected by E oxygen supplementation. Recc . I do not think thoracenteses or placement of a PleurX cath is needed at this time, especially in view of thrombocytpenia. Continue to provide oxygen supplementation at 2 L/minute, and on discharge she can have O2 concentrator at home. When discharged , she should the make appointment with her pulmonolog ist Dr. Kuo, to be seen in the next 1 or 2 weeks. Procedures Date of Service Date of Service: 12/31/21
[2021-12-31] MEDS: Zolpidem Tartrate 5 MG TABLET PO (21:01)
[2021-12-31 23:08] VITALS: BP 134/80; PULSE 103; RESP 14; TEMP 35.9; O2SAT 96
[2022-01-01] MEDS: cefTRIAXone sodium 1 GM in 0.9 % Sodium Chloride 50 ML IV (02:33)
[2022-01-01] MEDS: Omeprazole 40 MG CAPSULE.DR PO (05:38)
[2022-01-01 08:00] VITALS: BP 147/67; PULSE 80; RESP 17; TEMP 36.9; O2SAT 97
[2022-01-01] MEDS: predniSONE 10 MG TABLET 50 MG PO (08:52)
[2022-01-01] MEDS: Folic Acid 1 MG TABLET PO (08:53)
[2022-01-01] MEDS: 0.9 % Sodium Chloride Flush 3 ML SYRINGE IVFLUSH (08:53)
[2022-01-01] MEDS: Cyanocobalamin (Vitamin B-12) 500 MCG TABLET PO (08:53)
[2022-01-01 09:32] VITALS: BP 147/67; PULSE 80; O2SAT 97
--- NOTE | 2022-01-01 10:20 | P.CDIC_ITS ---
CDI Concurrent Query Documentation Clarification: PHYSICIAN'S DOCUMENTATION REQUEST Date of Query: 01/01/22 1020 Patient Name: Ursula Lacy Admit Date: 12/29/21 Dear Doctor, A review of the medical record indicates additional documentation may be indicated. Please review below and update the documentation accordingly. Clinical Indicators: Risk Factors/Clinical Indicators/Treatments Wound care notes patient has Pressure injury to bilateral buttocks. Open areas with reddness to buttocks. Nutrition notes 12/31 - adding Ensure TID to promote Kcals. Based on the above, could you please provide, in the Progress Notes, further information regarding the ulcer/wound: Stage of pressure injury: * If a pressure ulcer, please also include the stage* of the ulcer/injury: * Stage 1 - Skin intact, non-blanchable redness * Stage 2 - Partial thickness loss of dermis, includes intact or open blister * Stage 3 - Full thickness tissue not including bone, tendon, or muscle * Stage 4 - Full thickness tissue loss, including exposed bones, tendon, or muscle * Unstageable * Suspected deep tissue injury * Unable to determine *Source: National Pressure Ulcer Advisory Panel (NPUAP) Use of terms such as suspected, likely, concern for, or probable (associated with a specific diagnosis that is being evaluated, monitored, or treated as if it exists) are acceptable and can be coded in the inpatient setting, when documented at the time of discharge. Thank you, Sushma Wei [facility], CDIS Extension: [phone] Please use your independent medical judgment in providing your response. THIS QUERY IS PART OF THE PERMANENT MEDICAL RECORD Provider Response: Other Other Diagnosis: On able to determine
[2022-01-01 10:42] VITALS: O2SAT 95
--- NOTE | 2022-01-01 14:21 | PM.DS ---
DS: Providers Provider Date of Service: 01/01/22 Date of admission: 12/29/21 18:08 Date of discharge: 01/01/22 Primary care physician: Arlene Pressley MD Consults: 12/29/21 18:08 Consult to Hematology / Oncology Routine Consulting Provider: Gwen Shafer Reason for consultation: doug, abd distension Has provider been notified: No 12/31/21 10:46 Consult to Pulmonology Routine Consulting Provider: Roel Renteria Reason for consultation: b/l effusions Has provider been notified: No DS: Diagnosis Discharge Diagnosis (1) Metastatic breast cancer: Status: Chronic (2) Thrombocytopenia: Status: Acute (3) Pleural effusion: Status: Acute (4) Ascites: Status: Acute (5) Hypoxemia: Status: Acute DS: Summary Hospital Course Hospital Course: 76 year old women with hx of breast? cancer currently undergoing chemotherapy. Sent by Dr. Shafer for worsening abdominal distension and pressure. She was seen in the office today.? she reported she has been having diarrhea pretty consistently the last week.? She denied fever, chills, nausea, vomiting, recent travel, sick contacts.? In the ED, abd us showed small amount of ascites also metastatic disease to liver.? She has leukopenia, tachycardia, tachypnea.? Creatinine is noted to be elevated 1.71, potassium 5.3, platelet count 3.1.? In the ER she was given a dose of cefepime and 2 L of IV fluids. She will be admitted for further management and treatment of electrolyte abnormality and abdominal distension Hospital Course Admitted to hospital started on empiric ceftriaxone for question of UTI. Urine culture failed to demonstrate acute pathogens. One of the 2 sets of blood cultures positive for coag-negative staph (likely contaminant). Patient's renal function and Diovan once normalized with IV fluid and at this point she is anxious to be discharged to home and feels much better than when she presented. She is ambulatory with a walker and will be discharged home with services Time Spent with Patient Time attestation: Total time spent providing and/or coordinating discharge services: Discharge coordination time: Greater than 30 minutes Quality: Stroke Does the patient have a stroke diagnosis?: No Physical Exam Vital Signs: Vital Signs: Last Vital Signs Temp 98.5 F 01/01/22 08:00 Pulse 80 01/01/22 09:32 Resp 17 01/01/22 08:00 BP 147/67 H 01/01/22 09:32 Pulse Ox 95 01/01/22 10:42 BMI result Body Mass Index 31.4 Const: Other: Awake alert oriented x3 no acute distress Resp: Other: Clear to auscultation bilaterally no rales rhonchi or wheezes Cardio: Other: No S4; positive S1-S2; no S3 murmurs of scallops GI: Other: Soft nontender nondistended with normoactive bowel sounds Neuro: Other: Cranial nerves 2-12 grossly intact as tested. Motor is 5/5 all extremities. Sensation is intact. Gait steady with walker. Cognition appropriate Extrem: Other: No edema bilaterally DS: Data Data Completed and Pending Labs on day of discharge: Preliminary micro results at discharge 12/29/21 16:19 Blood Culture - Preliminary Blood - Venous Coag negative Staphylococcus 12/29/21 15:57 Blood Culture - Preliminary Blood - Venous No growth after 48 hours. Discharge Plan Discharge Patient Disposition: Home Health Service Discharge Diagnosis: abdominal distention Referrals: Arlene Pressley MD [Primary Care Provider] - 1 Week Discharge Medications: New prednisone 20 mg Tablet 40 mg PO DAILY Qty: 30 0RF Continued omeprazole 40 mg capsule,delayed release(DR/EC) 40 mg PO DAILY Qty: 90 3RF zolpidem 10 mg tablet 10 mg PO BEDTIME PRN (Reason: insomnia) Qty: 30 0RF cyanocobalamin (vitamin B-12) 500 mcg Tablet 500 mcg PO DAILY 0RF calcium carbonate [Calcium 600] 600 mg calcium (1,500 mg) Tablet 600 mg PO BID Qty: 60 5RF prednisone 20 mg tablet 3 tab PO DAILY 0RF sulfamethoxazole-trimethoprim 800-160 mg tablet 1 tab PO 3XW 0RF folic acid 1 mg tablet 1 mg PO DAILY 0RF Discharge Orders: Discharge Order (Routine); Ordered 01/01/22 Ordered By: Vladimir Dubon Diet: advance to usual diet Activity on Discharge: As tolerated Stand Alone Forms: Patient Portal Discharge page Care Plan Goals: Continue current therapies. Follow-up with wine sales representative as scheduled Health Concerns: Continue prednisone until seen by wine sales representative Plan of Treatment: Continue prednisone taper as outlined follow-up with wine sales representative Assessment: As per H&P
[2022-01-01] MEDS: ondansetron HCL 4 MG/2 ML VIAL IVPUSH (14:28)
[2022-01-01 15:35] VITALS: BP 155/69; PULSE 72; RESP 20; TEMP 37.1; O2SAT 98
== END 2022-01-01 16:59 | disposition home health service (06) | DRG 597 ==
LOC: HO.ED 17:34 → HO.EDOVER 18:17 → HO.S3 12-30 21:08
PROVIDERS: Hospitalist; Internal Medicine; Admitting Provider Nurse Practitioner Acute Care; Emergency Provider Emergency Medicine; PCP Internal Medicine; Visit Provider Hospitalist
DX: C50.919 Malignant neoplasm of unspecified site of unspecified female breast (principal); D61.810 Antineoplastic chemotherapy induced pancytopenia; N17.9 Acute kidney failure, unspecified; N39.0 Urinary tract infection, site not specified; C78.7 Secondary malignant neoplasm of liver and intrahepatic bile duct; C78.2 Secondary malignant neoplasm of pleura; C79.51 Secondary malignant neoplasm of bone; R18.0 Malignant ascites; J98.11 Atelectasis; J94.2 Hemothorax; J91.0 Malignant pleural effusion; J98.2 Interstitial emphysema; I10 Essential (primary) hypertension; E87.5 Hyperkalemia; T45.1X5A Adverse effect of antineoplastic and immunosuppressive drugs, initial encounter; E88.09 Other disorders of plasma-protein metabolism, not elsewhere classified; R09.02 Hypoxemia; Z20.822 Contact with and (suspected) exposure to COVID-19; Z88.5 Allergy status to narcotic agent; Z17.0 Estrogen receptor positive status [ER+]; Z79.52 Long term (current) use of systemic steroids; Z79.899 Other long term (current) drug therapy
CPT/HCPCS: 36415; 71045; 71250; 74150; 76705; 80048; 80053; 80076; 81001; 83605; 83690; 83735; 83880; 85007; 85025; 85027; 85610; 85730; 86300; 87040; 87086; 87147; 87205; 87635; 96361; 96374; 97161; 99285; J0692; J0696; J2405

== ENCOUNTER 2022-01-07 14:24 | Outpatient (REF) | payer MEDICARE, MEDICAID, SELFPAY ==
[2022-01-07 14:28] LABS: MANUAL DIFF FLAG NO
[2022-01-07 14:36] LABS: Basophils Percent Auto 0.2 % (0-2); Hematocrit 40.1 % (37.0-47.0); Hemoglobin 13.4 g/dl (12.0-16.0); Imm Gran Abs Auto 0.04 X10*3/uL (0.00-0.03); Lymphocytes Absolute Auto 0.3 X10*3/uL (1.2-4.9); Lymphocytes Percent Auto 6.4 % (20-40); Mean Corpuscular HGB Conc 33.4 g/dl (31.0-35.0); Mean Corpuscular Volume 92.8 fL (80.0-98.0); Monocytes Absolute Auto 0.2 X10*3/uL (0.1-1.2); Monocytes Percent Auto 4.7 % (2-11); Neutrophils Absolute Auto 3.6 x10*3/uL (2.0-8.3); Neutrophils Percent Auto 87.7 % (45-73); Red Blood Count 4.32 X10*6/uL (4.20-5.50); Red Cell Distribution Width 17.3 % (11.0-16.0); White Blood Count 4.1 X10*3/uL (4.8-10.8)
[2022-01-07 14:37] LABS: Platelet Count 40 X10*3/uL (160-400)
[2022-01-07 15:32] LABS: Alanine Aminotransferase 220 U/L (0-31); Albumin Level 2.4 g/dL (3.5-5.0); Alkaline Phosphatase 768 U/L (39-117); Anion Gap 14 (12-20); Aspartate Amino Transferase 190 U/L (5-31); Bilirubin Total 3.6 mg/dL (0.0-1.0); Blood Urea Nitrogen 45 mg/dL (9-16); Calcium 7.6 mg/dL (8.4-10.2); Carbon Dioxide 21 mmol/L (22-29); Chloride 104 mmol/L (96-108); Estimated Glomerular Filt Rate 54; Glucose Random 124 mg/dL (60-115); Potassium 5.3 mmol/L (3.3-5.1); Sodium 134 mmol/L (135-145); Total Protein 4.1 g/dL (6.5-8.0)
== END 2022-01-07 14:25 | disposition home or self-care (01) ==
LOC: HO.HVNA 14:24
PROVIDERS: Visit Provider Internal Medicine
DX: C79.81 Secondary malignant neoplasm of breast (principal)
CPT/HCPCS: 36415; 80053; 85025